=== PATIENT | female | born 1970 | race Caucasian/White ===

== ENCOUNTER 2017-04-13 07:57 | Emergency (ER) | payer OTHER ==
[2017-04-13 08:09] VITALS: BP 113/64; PULSE 85; TEMP 98; BMI 25.3
--- NOTE | 2017-04-13 08:14 | PDOC ---
History of Present Illness - General Chief Complaint: Pain Stated Complaint: LEG PAIN Time Seen by Provider: 04/13/17 08:10 History Source: Patient Exam Limitations: No Limitations - History of Present Illness Initial Comments: CHIEF COMPLAINT: 46 y/o afebrile female with no significant PMH c/o b/l leg pain x 3 weeks and lower abdominal pain x 3 days. HISTORY OF PRESENT ILLNESS: The patient states her lower legs have been hurting for 3 weeks. 3 days ago she started having lower abdominal discomfort. She denies f/c, n/v/d, constipation, cough, hemoptysis, CP, SOB, back pain, hematuria, dysuria, fall, recent travel, smoking history, use of control, redness/warmth to lower legs. Vital signs on arrival are within normal limits. REVIEW OF SYSTEMS: GENERAL/CONSTITUTIONAL: No fever/chills. No weakness. No weight change. GI: +lower abd pain. No nausea, vomiting, diarrhea. GENITOURINARY: No dysuria, frequency, or change in urination. MUSCULOSKELETAL: +lower extremity pain. No neck or back pain. SKIN: No rash or easy bruising. NEUROLOGIC: No headache, vertigo, loss of consciousness, or loss of sensation. PHYSICAL EXAM: VITAL_SIGNS: within normal limits GENERAL_APPEARANCE: alert, cooperative, no obvious discomfort. Pt is ambulatory. MENTAL_STATUS: speech clear, oriented X 3, responds appropriately to questions. GI: TTP of suprapubic region. No rebound, guarding, rigidity. No McBurney's point TTP. BACK: No CVA TTP b/l. NEURO: motor intact and sensory intact in injured extremity. EXTREMITIES: good pulse in injured extremity. TTP of b/l calves. No erythema, warmth or swelling to b/l LEs. SKIN: warm, dry, good color. Past History - Past Medical History Allergies/Adverse Reactions: Allergies Allergy/AdvReac Type Severity Reaction Status Date / Time No Known Allergies Allergy Verified 04/13/17 08:05 Home Medications: Ambulatory Orders Naproxen [Naprosyn -] 500 mg PO BID #10 tablet 04/13/17 Nitrofurantoin Monohyd/M-Cryst [Macrobid -] 100 mg PO BID #14 capsule 04/13/17 Kidney Stones: Yes - Immunization History Immunization Up to Date: Yes - Psycho/Social/Smoking Cessation Hx Anxiety: No Suicidal Ideation: No Smoking Status: No Smoking History: Never smoked Have you smoked in the past 12 months: No Number of Cigarettes Smoked Daily: 0 Hx Alcohol Use: Yes (OCCASIONALLY) Drug/Substance Use Hx: No Substance Use Type: None *Physical Exam - Vital Signs Last Vital Signs Temp Pulse Resp BP Pulse Ox 98 F 85 17 113/64 99 04/13/17 08:05 04/13/17 08:05 04/13/17 08:05 04/13/17 08:05 04/13/17 08:05 Medical Decision Making - Medical Decision Making A/P: 46 y/o afebrile female with suprapubic pain x 3 days and LE pain x 3 weeks. Plan is as follows: 1. UA/hcg/culture 2. Ultrasound b/l LEs. Ultrasound b/l LE IMPRESSION: No DVT in right or left leg. Laboratory Tests 04/13/17 08:50 Urine Blood 1+ H Urine Nitrite Negative Urine Bilirubin Negative Urine Urobilinogen Negative Ur Leukocyte Esterase 1+ H Urine RBC 2 Urine WBC 5 The patient will be discharged to home with macrobid for UTI. Suggested Naproxen for pain and f/u with her PCP if leg pain continues. Also encouraged at least 64oz of water daily. Suggested she return to the ER with any worsening or concerning symptoms. The patient verbalizes understanding of all instructions, has no further questions and is awaiting discharge. *DC/Admit/Observation/Transfer Diagnosis at time of Disposition: Leg pain, bilateral UTI (urinary tract infection) Qualifiers: Urinary tract infection type: acute cystitis Hematuria presence: with hematuria Qualified Code(s): N30.01 - Acute cystitis with hematuria - Discharge Dispostion Disposition: HOME Condition at time of disposition: Good - Referrals Referrals: Lavelle Seay MD [Primary Care Provider] - Call tomorrow - Patient Instructions Printed Discharge Instructions: DI for Leg Pain, DI for Urinary Tract Infection (UTI) Additional Instructions: Discharge Instructions: -You have a urinary tract infection; a prescription for antibiotics was sent to your pharmacy. Please take all 7 days. -The ultrasound of your legs were normal -A prescription was sent to you pharmacy for pain; please take only if needed with food -Drink at least 64oz of water daily -Call Dr. Seay next week to schedule appointment if your symptoms continue Instrucciones de graham: -Usted tiene helga infeccin del tracto urinario; Se le envi helga receta de antibi ticos a ramirez farmacia. Por favor tome los 7 sandoval. -El ultrasonido de las piernas era normal -Helga receta le fue enviada a usted farmacia para el dolor; Por favor tome solo si es necesario con alimentos - Glo por lo menos 64oz de agua al da - Llame al Dr. Seay la prxima semana para programar helga selma si hillary sntomas continan
[2017-04-13 09:03] LABS: URINE APPEARANCE CLEAR; URINE BILIRUBIN NEGATIVE (NEGATIVE); URINE COLOR STRAW; URINE GLUCOSE (UA) NEGATIVE (NEGATIVE); URINE KETONE NEGATIVE (NEGATIVE); URINE NITRITE NEGATIVE (NEGATIVE); URINE PROTEIN NEGATIVE (NEGATIVE); URINE UROBILINOGEN NEGATIVE E.U./dl (0.2-1.0)
[2017-04-13 09:13] LABS: URINE BLOOD 1+ (NEGATIVE); URINE LEUK ESTERASE 1+ (NEGATIVE)
[2017-04-13 09:15] LABS: URINE BACTERIA RARE /hpf (NONE SEEN); URINE RBC 2 /hpf (0-3); URINE WBC 5 /hpf (3-5)
== END 2017-04-13 11:20 | disposition home or self-care (01) ==
LOC: JERFT 07:57
DX: N30.01 Acute cystitis with hematuria (principal); M79.604 Pain in right leg; M79.605 Pain in left leg
CPT/HCPCS: 81003; 81015; 84703; 87086; 93970-TC; 99281-25

== ENCOUNTER 2018-10-28 14:51 | Emergency (ER) | payer OTHER ==
[2018-10-28 14:59] VITALS: BP 109/71; PULSE 89; TEMP 98; BMI 29.2
--- NOTE | 2018-10-28 16:56 | PDOC ---
Attending Attestation - HPI HPI: 10/28/18 19:22 The patient is a 48 year old female with no past medical history who presents to the ED today complaining of chest pain since earlier today and numbness for the past 3 days. The patients reports sharp left sided chest pain which radiates to her lower left shoulder and left arm. The patient notes that the pain was intermediate and has since subsided. The patient reports having intermediate numbness on the left side of her body for the past 3 days. Denies fevers or chills. Denies nausea or vomiting. Denies chest pain or shortness of breath. Denies tinglingness, dysphagia. Denies any other symptoms. <Jaqui Quinn - Last Filed: 10/28/18 19:23> - Resident Resident Name: Wade Sifuentes - ED Attending Attestation I have performed the following: I have examined & evaluated the patient, The case was reviewed & discussed with the resident, I agree w/resident's findings & plan, Exceptions are as noted - Physicial Exam PE: 10/29/18 16:42 wnwd 48 yo female with 3 days of pain head ncat neck supple lungs cta b/l cvs [id number] abd soft,nontender extremities no edema skin warm and dry neuro axox3,ambulatory psych sl anxious - Medical Decision Making 10/29/18 16:45 first trop negative ekg no ischemia pt eloped imp atypical chest pain <Araseli Bagley - Last Filed: 10/29/18 16:45> Attestations - Attestations 10/28/18 19:23 Documentation prepared by Jaqui Quinn, acting as lead medical technologist for Araseli Bagley MD <Jaqui Quinn - Last Filed: 10/28/18 19:23>
[2018-10-28 16:58] LABS: BASO % 0.9 % (0-2.0); EOS % 4.1 % (0-4.5); HEMATOCRIT 39.6 % (32.4-45.2); HEMOGLOBIN 13.4 GM/dL (10.7-15.3); LYMPH % 47.6 % (8-40); MCHC 33.8 g/dl (32.0-36.0); MEAN CELL VOLUME 91.7 fl (80-96); MONO % 7.2 % (3.8-10.2); NEUT % 40.2 % (42.8-82.8); PLATELET COUNT 229 K/MM3 (134-434); RBC 4.32 M/mm3 (3.60-5.2); RDW 13.5 % (11.6-15.6); WHITE BLOOD COUNT 8.2 K/mm3 (4.0-10.0)
--- NOTE | 2018-10-28 17:01 | PDOC ---
History of Present Illness - General Chief Complaint: Chest Pain Stated Complaint: PAIN Time Seen by Provider: 10/28/18 16:03 History Source: Patient Exam Limitations: No Limitations - History of Present Illness Initial Comments: 10/28/18 16:50 The patient is a 48F with no PMH who presents to the ER with multiple complaints. The patient states that she began having L sided chest pain which is sharp and radiating up to her L shoulder and down her arm. The pain was intermittent and is no longer present. She denies SOB, lightheadedness, diaphoresis, nausea, vomiting, and palpitations. She also states that for the last 3 days, she's had intermittent numbness on the L side of her body. She states that this is not associated with weakness or tingling, activities, time of day, blurry vision, or dysphagia. She denies current numbness. She denies any other complaints. Past History - Past Medical History Allergies/Adverse Reactions: Allergies Allergy/AdvReac Type Severity Reaction Status Date / Time No Known Allergies Allergy Verified 10/28/18 14:59 Home Medications: Ambulatory Orders NK [No Known Home Medication] 10/28/18 COPD: No Kidney Stones: Yes - Immunization History Immunization Up to Date: Yes - Suicide/Smoking/Psychosocial Hx Smoking Status: No Smoking History: Never smoked Have you smoked in the past 12 months: No Number of Cigarettes Smoked Daily: 0 Hx Alcohol Use: Yes (OCCASIONALLY) Drug/Substance Use Hx: No Substance Use Type: None Review of Systems - Review of Systems Able to Perform ROS?: Yes Comments:: 10/28/18 17:02 GENERAL/CONSTITUTIONAL: No fever or chills. No weakness. HEAD, EYES, EARS, NOSE AND THROAT: No change in vision. No ear pain or discharge. No sore throat. CARDIOVASCULAR: Positive for resolved CP. No palpitations or lightheadedness. RESPIRATORY: No cough, wheezing, shortness of breath, or hemoptysis. GASTROINTESTINAL: No nausea, vomiting, diarrhea, constipation, or abdominal pain. GENITOURINARY: No dysuria, frequency, hematuria, or change in urination. MUSCULOSKELETAL: No joint or muscle swelling or pain. No neck or back pain. SKIN: No rash or lesions. NEUROLOGIC: Positive for numbness. No headache, tingling, focal weakness, loss of consciousness, or change in strength/sensation. ENDOCRINE: No increased thirst. No abnormal weight change. HEMATOLOGIC/LYMPHATIC: No anemia, easy bleeding, or history of blood clots. ALLERGIC/IMMUNOLOGIC: No hives or skin allergy. Is the patient limited Thai proficient: No *Physical Exam - Vital Signs Last Vital Signs Temp Pulse Resp BP Pulse Ox 98 F 89 18 109/71 99 10/28/18 14:56 10/28/18 14:56 10/28/18 14:56 10/28/18 14:56 10/28/18 14:56 - Physical Exam Comments: 10/28/18 17:06 GENERAL: Well developed, well nourished. Awake and alert. No acute distress. HEENT: Normocephalic, atraumatic. Hearing grossly normal. Moist mucous membranes. PERRLA, EOMI. No conjunctival pallor. Sclera are non-icteric. NECK: Supple. Full ROM. No JVD. Carotid pulses 2+ and symmetric, without bruits. No thyromegaly. No lymphadenopathy. CARDIOVASCULAR: Regular rate and rhythm. No murmurs, rubs, or gallops. PULMONARY: No evidence of respiratory distress. Lungs clear to auscultation bilaterally. No wheezing, rales or rhonchi. ABDOMINAL: Soft. Non-tender. Non-distended. No rebound or guarding. GENITOURINARY: No CVA tenderness bilaterally. MUSCULOSKELETAL: Normal range of motion at all joints. No bony deformities or tenderness. EXTREMITIES: No cyanosis. No clubbing. No edema. No calf tenderness or swelling. SKIN: Warm and dry. Normal capillary refill. No rashes. No jaundice. NEUROLOGICAL: Alert, awake, appropriate. Cranial nerves 2-12 intact. No deficits to light touch and temperature in face, upper extremities and lower extremities. 5/5 strength in deltoids, biceps, triceps, quadriceps, hamstrings, and gastrocnemius. Normal speech. Gait is normal without ataxia. PSYCHIATRIC: Cooperative. Good eye contact. Appropriate mood and affect. Moderate Sedation - Procedure Monitoring Vital Signs: Procedure Monitoring Vital Signs Temperature 98 F 10/28/18 14:56 Pulse Rate 89 10/28/18 14:56 Respiratory Rate 18 10/28/18 14:56 Blood Pressure 109/71 10/28/18 14:56 O2 Sat by Pulse Oximetry (%) 99 10/28/18 14:56 ED Treatment Course - LABORATORY CBC & Chemistry Diagram: 10/28/18 16:50 10/28/18 16:50 - RADIOLOGY Radiology Studies Ordered: Category Date Time Status CHEST PA & LAT [RAD] Stat Radiology 10/28/18 16:17 Ordered Medical Decision Making - Medical Decision Making 10/28/18 17:06 The patient is a 48F with no PMH who presents to the ER with complaints of chest pain and intermittent numbness, all of which are not present currently. The patient states that she has a strong family history of cardiovascular disease, so we will order an EKG, CXR, labwork including troponin, to evaluate for possible cardiac cause of CP. 10/28/18 17:10 Pt negative troponin. CBC, CMP WNL. Pt informed and informed to wait for 2nd troponin due to pt's history of having her brother have SCD at the age of 45. Pt agrees. 10/28/18 19:11 Searched for patient throughout ED and called pt. Pt eloped. *DC/Admit/Observation/Transfer Diagnosis at time of Disposition: Chest pain, atypical - Discharge Dispostion Disposition: ELOPED - Referrals - Patient Instructions - Post Discharge Activity
[2018-10-28 17:10] LABS: INR 0.91 (0.83-1.09); PROTHROMBIN TIME (PATIENT) 10.7 SEC (9.7-13.0)
[2018-10-28 17:33] LABS: ALBUMIN 3.7 g/dl (3.4-5.0); ALK PHOS 84 U/L (45-117); ANION GAP 8 MMOL/L (8-16); BILIRUBIN,TOTAL 0.2 mg/dL (0.2-1); BLOOD UREA NITROGEN 19 mg/dL (7-18); CHLORIDE 106 mmol/L (98-107); CO2 25 mmol/L (21-32); CREATININE 0.7 mg/dL (0.55-1.3); GLUCOSE,RANDOM 90 mg/dL (74-106); POTASSIUM 3.8 mmol/L (3.5-5.1); SGOT/AST 16 U/L (15-37); SGPT/ALT 18 U/L (13-61); SODIUM 139 mmol/L (136-145); TOT PROT 7.3 g/dl (6.4-8.2)
--- NOTE | 2018-10-29 12:17 | EKG ---
Test Reason : Blood Pressure : / mmHG Vent. Rate : 084 BPM Atrial Rate : 084 BPM P-R Int : 148 ms QRS Dur : 076 ms QT Int : 362 ms P-R-T Axes : 068 054 071 degrees QTc Int : 427 ms NORMAL SINUS RHYTHM NORMAL ECG WHEN COMPARED WITH ECG OF 11-NOV-2014 04:32, NO SIGNIFICANT CHANGE WAS FOUND Confirmed by ADY DING MD ([id number]) on 10/29/2018 12:16:40 PM Referred By: Confirmed By:ADY DING MD
== END 2018-10-28 19:12 | disposition left against medical advice (07) ==
LOC: JER 14:51
DX: R07.89 Other chest pain (principal)
CPT/HCPCS: 36415; 80053; 82550; 84484; 84703; 85025; 85610; 93005; 93010; 99281-25

== ENCOUNTER 2018-11-19 13:35 | Emergency (ER) | payer OTHER ==
[2018-11-19 13:42] VITALS: BP 108/71; PULSE 89; TEMP 97.8; BMI 31.0
--- NOTE | 2018-11-19 15:28 | PDOC ---
History of Present Illness - General Chief Complaint: Pain, Acute Stated Complaint: NECK / BACK PAIN Time Seen by Provider: 11/19/18 14:24 History Source: Patient - History of Present Illness Timing/Duration: reports: intermittent Quality: reports: mild Past History - Past Medical History Allergies/Adverse Reactions: Allergies Allergy/AdvReac Type Severity Reaction Status Date / Time No Known Allergies Allergy Verified 10/28/18 14:59 Home Medications: Ambulatory Orders NK [No Known Home Medication] 10/28/18 COPD: No Kidney Stones: Yes - Immunization History Immunization Up to Date: Yes - Suicide/Smoking/Psychosocial Hx Smoking Status: No Smoking History: Never smoked Have you smoked in the past 12 months: No Number of Cigarettes Smoked Daily: 0 Information on smoking cessation initiated: No Hx Alcohol Use: No Drug/Substance Use Hx: No Substance Use Type: None Review of Systems - Review of Systems Constitutional: No: Chills, Fever ABD/GI: Yes: Nausea, Vomiting. No: Blood Streaked Bowels, Constipated, Diarrhea , Rectal Bleeding, Abdominal cramping : No: Dysuria, Discharge *Physical Exam - Vital Signs Last Vital Signs Temp Pulse Resp BP Pulse Ox 97.8 F 89 18 108/71 98 11/19/18 13:38 11/19/18 13:38 11/19/18 13:38 11/19/18 13:38 11/19/18 13:38 - Physical Exam General Appearance: Yes: Appropriately Dressed. No: Apparent Distress HEENT: positive: Normal Voice Neck: positive: Supple Respiratory/Chest: negative: Respiratory Distress Gastrointestinal/Abdominal: positive: Normal Bowel Sounds, Soft. negative: Tender, Distended, Guarding, Rebound Musculoskeletal: negative: CVA Tenderness Integumentary: positive: Dry, Warm Neurologic: positive: Fully Oriented, Alert Moderate Sedation - Procedure Monitoring Vital Signs: Procedure Monitoring Vital Signs Temperature 97.8 F 11/19/18 13:38 Pulse Rate 89 11/19/18 13:38 Respiratory Rate 18 11/19/18 13:38 Blood Pressure 108/71 11/19/18 13:38 O2 Sat by Pulse Oximetry (%) 98 11/19/18 13:38 ED Treatment Course - LABORATORY CBC & Chemistry Diagram: 11/19/18 15:30 11/19/18 15:30 Medical Decision Making - Medical Decision Making 11/19/18 15:19 48 yo F, states she had a MEAGHAN-BSO for "pre-cancer" in 06/2015 at [facility] per pt, here because she has had multiple + tests at home recently and in her doctor's office. Patient states she performed a test because for the past few days she's been having some nausea, vomiting, abdominal bloating and bilateral breast pain and felt that I was . No vaginal bleeding at this time. Last BM was yesterday and passing gas per pt. No Denies abd pain, dysuria, f/c See exam N/V w/ bloating Possible gastritis/GERD, unlikely SBO as +BM and flatus, +preg test at home though s/p MEAGHAN-BSO 2/2 endometrial hyperplasia per documents pt has on her person -rpt preg test here -labs -will discuss further w/u with ED attg 11/19/18 16:50 Beta quant 8. M/l false + given extensive [employer] surgery but will get US as d/w ED attg 11/19/18 17:47 Ultrasound read as s/p hysterectomy and bilateral oophorectomies. No abnormalities noted. Patient made aware and will be discharged to f/u /w her OB *DC/Admit/Observation/Transfer Diagnosis at time of Disposition: Elevated serum hCG - Discharge Dispostion Disposition: HOME Condition at time of disposition: Stable - Referrals - Patient Instructions Additional Instructions: Your beta hCG today was 8. The reason for this is unclear as you have had a total hysterectomy which is demonstrated on your ultrasound, which was normal here. Continue to follow-up with your [employer] - Post Discharge Activity
[2018-11-19 15:51] LABS: BASO % 0.8 % (0-2.0); EOS % 3.7 % (0-4.5); HEMATOCRIT 40.4 % (32.4-45.2); HEMOGLOBIN 13.8 GM/dL (10.7-15.3); LYMPH % 39.8 % (8-40); MCH 31.6 pg (25.7-33.7); MCHC 34.2 g/dl (32.0-36.0); MEAN CELL VOLUME 92.3 fl (80-96); MEAN PLT VOLUME 10.3 fl (7.5-11.1); MONO % 6.8 % (3.8-10.2); NEUT % 48.9 % (42.8-82.8); PLATELET COUNT 236 K/MM3 (134-434); RBC 4.37 M/mm3 (3.60-5.2); RDW 13.6 % (11.6-15.6); WHITE BLOOD COUNT 7.5 K/mm3 (4.0-10.0)
[2018-11-19 15:58] LABS: URINE APPEARANCE SLCLOUDY; URINE BILIRUBIN NEGATIVE (<2.0 mg/dL); URINE COLOR YELLOW; URINE GLUCOSE (UA) NEGATIVE (NEGATIVE); URINE KETONE NEGATIVE (NEGATIVE); URINE LEUK ESTERASE NEGATIVE (NEGATIVE); URINE NITRITE POSITIVE (NEGATIVE); URINE PROTEIN NEGATIVE (NEGATIVE); URINE UROBILINOGEN NEGATIVE mg/dL (0.2-1.0)
[2018-11-19 16:14] LABS: ALBUMIN 3.6 g/dl (3.4-5.0); ALK PHOS 79 U/L (45-117); ANION GAP 4 MMOL/L (8-16); BILIRUBIN,TOTAL 0.3 mg/dL (0.2-1); BLOOD UREA NITROGEN 16 mg/dL (7-18); CALCIUM 8.8 mg/dL (8.5-10.1); CHLORIDE 109 mmol/L (98-107); CO2 28 mmol/L (21-32); CREATININE 0.8 mg/dL (0.55-1.3); GLUCOSE,RANDOM 97 mg/dL (74-106); POTASSIUM 4.1 mmol/L (3.5-5.1); SGOT/AST 15 U/L (15-37); SGPT/ALT 24 U/L (13-61); SODIUM 141 mmol/L (136-145); TOT PROT 7.2 g/dl (6.4-8.2)
[2018-11-19 16:16] LABS: EPI CELLS FEW /HPF (FEW); URINE MUCUS RARE
--- NOTE | 2018-11-19 17:51 | PDOC ---
*Physical Exam - Vital Signs Last Vital Signs Temp Pulse Resp BP Pulse Ox 97.8 F 89 18 108/71 98 11/19/18 13:38 11/19/18 13:38 11/19/18 13:38 11/19/18 13:38 11/19/18 13:38 ED Treatment Course - LABORATORY CBC & Chemistry Diagram: 11/19/18 15:30 11/19/18 15:30 - ADDITIONAL ORDERS Additional order review: Laboratory Results 11/19/18 11/19/18 11/19/18 15:30 15:28 15:28 Sodium 141 Potassium 4.1 Chloride 109 H Carbon Dioxide 28 Anion Gap 4 L BUN 16 Creatinine 0.8 Creat Clearance w eGFR > 60 Random Glucose 97 Calcium 8.8 Total Bilirubin 0.3 AST 15 ALT 24 Alkaline Phosphatase 79 Total Protein 7.2 Albumin 3.6 Beta HCG, Quant 8.9 Urine Color Yellow Urine Appearance Slcloudy Urine pH 5.0 Ur Specific [place] 1.021 Urine Protein Negative Urine Glucose (UA) Negative Urine Ketones Negative Urine Blood 1+ H Urine Nitrite Positive Urine Bilirubin Negative Urine Urobilinogen Negative Ur Leukocyte Esterase Negative Urine WBC (Auto) 7 Urine RBC (Auto) 3 Ur Epithelial Cells Few Urine Mucus Rare Urine HCG, Qual Borderline hcg level 11/19/18 15:30 RBC 4.37 MCV 92.3 MCHC 34.2 RDW 13.6 MPV 10.3 Neutrophils % 48.9 D Lymphocytes % 39.8 Monocytes % 6.8 Eosinophils % 3.7 Basophils % 0.8 - RADIOLOGY Radiology Studies Ordered: Category Date Time Status TRANSVAGINAL US PREG [US] Stat Ultrasound 11/19/18 16:41 Completed Medical Decision Making - Medical Decision Making 11/19/18 17:50 Will dc/ abx for uti though pt denies dysuria. Ucx sent *DC/Admit/Observation/Transfer Diagnosis at time of Disposition: Elevated serum hCG UTI (urinary tract infection) Qualifiers: Urinary tract infection type: acute cystitis Hematuria presence: without hematuria Qualified Code(s): N30.00 - Acute cystitis without hematuria - Discharge Dispostion Disposition: HOME Condition at time of disposition: Stable - Prescriptions Prescriptions: Nitrofurantoin Monohyd/M-Cryst [Macrobid -] 100 mg PO BID #14 capsule - Referrals - Patient Instructions Printed Discharge Instructions: Urinary Tract Infection Additional Instructions: Your beta hCG today was 8. The reason for this is unclear as you have had a total hysterectomy which is demonstrated on your ultrasound, which was normal here. Continue to follow-up with your [facility] - Post Discharge Activity
== END 2018-11-19 18:20 | disposition home or self-care (01) ==
LOC: JER 13:35
DX: R89.1 Abnormal level of hormones in specimens from other organs, systems and tissues (principal); R74.8 Abnormal levels of other serum enzymes; E34.8 Other specified endocrine disorders; Z90.710 Acquired absence of both cervix and uterus; Z90.722 Acquired absence of ovaries, bilateral
CPT/HCPCS: 36415; 76817-TC; 80053; 81003; 81015; 84702; 84703; 85025; 99282-25

== ENCOUNTER 2020-08-24 08:58 | Emergency (ER) | payer OTHER ==
[2020-08-24 09:10] VITALS: BMI 29.2
[2020-08-24 10:21] LABS: EPI CELLS >36 /uL (0-25.1); HYALINE CASTS 1 /uL (0-3.1); URINE APPEARANCE CLEAR; URINE BACTERIA 7707 /uL (0-1359); URINE BILIRUBIN NEGATIVE (NEGATIVE); URINE COLOR YELLOW; URINE GLUCOSE (UA) NEGATIVE (NEGATIVE); URINE KETONE NEGATIVE (NEGATIVE); URINE LEUK ESTERASE 1+ (NEGATIVE); URINE NITRITE NEGATIVE (NEGATIVE); URINE PROTEIN NEGATIVE (NEGATIVE); URINE RBC 10 /uL (0-23.9); URINE UROBILINOGEN 0.2 mg/dL (0.2-1.0); URINE WBC 44 /uL (0-25.8)
[2020-08-24] MEDS ORDERED: KETOROLAC TROMETHAMINE 30 MG/1 ML VIAL IVPUSH ONE (10:26)
[2020-08-24] MEDS ORDERED: KETOROLAC TROMETHAMINE 30 MG/1 ML VIAL ONE (10:31)
[2020-08-24 11:20] LABS: BASO % 0.8 % (0-2.0); EOS % 2.7 % (0-4.5); HEMATOCRIT 41.7 % (32.4-45.2); HEMOGLOBIN 13.9 GM/dL (10.7-15.3); LYMPH % 45.5 % (8-40); MCHC 33.4 g/dl (32.0-36.0); MEAN CELL VOLUME 92.8 fl (80-96); MEAN PLT VOLUME 11.1 fl (7.5-11.1); PLATELET COUNT 256 K/MM3 (134-434); RDW 13.5 % (11.6-15.6); WHITE BLOOD COUNT 7.8 K/mm3 (4.0-10.0)
[2020-08-24 11:45] LABS: POTASSIUM 4.9 mmol/L (3.5-5.1)
[2020-08-24 11:47] LABS: ALBUMIN 3.6 g/dl (3.4-5.0); BLOOD UREA NITROGEN 12.6 mg/dL (7-18); CALCIUM 9.3 mg/dL (8.5-10.1)
[2020-08-24 11:50] LABS: CREATININE 0.7 mg/dL (0.55-1.3)
[2020-08-24 11:52] LABS: BILIRUBIN,TOTAL 0.6 mg/dL (0.2-1); TOT PROT 7.4 g/dl (6.4-8.2)
[2020-08-24 12:02] VITALS: BP 120/65; PULSE 70; TEMP 98.1
== END 2020-08-24 12:45 | disposition home or self-care (01) ==
LOC: JERFT 08:58
PROC: 3E0333Z Introduction of Anti-inflammatory into Peripheral Vein, Percutaneous Approach (ICD-10-PCS; principal; 2020-08-24)
DX: M54.5 Low back pain (principal)
CPT/HCPCS: 36415; 72100-TC-FY; 76705-TC; 80053; 81003; 83690; 85025; 87086; 87186; 99285-25

== ENCOUNTER 2021-07-24 03:41 | Emergency (ER) | payer OTHER ==
[2021-07-24] MEDS ORDERED: SODIUM CHLORIDE 0.9% 500 ML INFUS.BAG IV ONE (04:30)
[2021-07-24] MEDS ORDERED: METOCLOPRAMIDE HCL INJECTION 10 MG/2 ML VIAL IVPUSH ONE (04:30)
[2021-07-24] MEDS ORDERED: ACETAMINOPHEN 325 MG TABLET (FP) PO ONE (04:30)
[2021-07-24 04:52] VITALS: BP 128/67; PULSE 84; TEMP 97.9; BMI 31.2
[2021-07-24] MEDS ORDERED: ACETAMINOPHEN 325 MG TABLET (FP) ONE (04:54)
[2021-07-24] MEDS ORDERED: METOCLOPRAMIDE HCL INJECTION 10 MG/2 ML VIAL ONE (04:54)
[2021-07-24] MEDS ORDERED: SUMATRIPTAN SUCCINATE 6 MG/0.5 ML VIAL SQ ONE (05:10)
[2021-07-24] MEDS ORDERED: SUMATRIPTAN SUCCINATE 6 MG/0.5 ML VIAL ONE (05:12)
[2021-07-24 05:58] LABS: EPI CELLS 6 /uL (0-25.1); HYALINE CASTS 0 /uL (0-3.1); PH,URINE 6.5 (5.0-8.0); URINE APPEARANCE CLEAR; URINE BACTERIA >9,000 /uL (0-1359); URINE BILIRUBIN NEGATIVE (NEGATIVE); URINE COLOR YELLOW; URINE GLUCOSE (UA) NEGATIVE (NEGATIVE); URINE KETONE NEGATIVE (NEGATIVE); URINE LEUK ESTERASE TRACE (NEGATIVE); URINE NITRITE NEGATIVE (NEGATIVE); URINE PROTEIN NEGATIVE (NEGATIVE); URINE RBC 9 /uL (0-23.9); URINE UROBILINOGEN 0.2 mg/dL (0.2-1.0); URINE WBC 41 /uL (0-25.8)
[2021-07-24] MEDS ORDERED: CEFTRIAXONE 1 GM in DEXTROSE 5%-WATER - 100 ML IVPB ONE (06:00)
[2021-07-24] MEDS ORDERED: CEFTRIAXONE 1 GM/50 ML BAG ONE (06:03)
== END 2021-07-24 06:24 | disposition home or self-care (01) ==
LOC: JER 03:41
PROC: 3E03329 Introduction of Other Anti-infective into Peripheral Vein, Percutaneous Approach (ICD-10-PCS; principal; 2021-07-24)
PROC: 3E033GC Introduction of Other Therapeutic Substance into Peripheral Vein, Percutaneous Approach (ICD-10-PCS; 2021-07-24)
DX: G43.009 Migraine without aura, not intractable, without status migrainosus (principal); N30.00 Acute cystitis without hematuria
CPT/HCPCS: 81003; 87086; 87186; 99284-25

== ENCOUNTER 2021-07-25 11:04 | Emergency (ER) | payer OTHER ==
[2021-07-25 11:11] VITALS: BP 121/77; PULSE 89; TEMP 97; BMI 31.2
[2021-07-25] MEDS ORDERED: KETOROLAC TROMETHAMINE 30 MG/1 ML VIAL IM ONE (12:03)
[2021-07-25] MEDS ORDERED: KETOROLAC TROMETHAMINE 60 MG/2 ML VIAL ONE (12:57)
== END 2021-07-25 12:47 | disposition home or self-care (01) ==
LOC: JERFT 11:04
PROC: 3E0233Z Introduction of Anti-inflammatory into Muscle, Percutaneous Approach (ICD-10-PCS; principal; 2021-07-25)
DX: K02.9 Dental caries, unspecified (principal); K08.89 Other specified disorders of teeth and supporting structures
CPT/HCPCS: 99283-25

== ENCOUNTER → 2022-08-10 | Day surgery (SDC) | payer OTHER | END | disposition home or self-care (01) | LOC: FRADUS-SUR 13:04 | PROVIDERS: ATTEND Registered Nurse | PROC: 0HBU3ZX Excision of Left Breast, Percutaneous Approach, Diagnostic (ICD-10-PCS; principal; 2022-08-10) | DX: C50.912 Malignant neoplasm of unspecified site of left female breast (principal); N60.12 Diffuse cystic mastopathy of left breast; N60.32 Fibrosclerosis of left breast; N60.82 Other benign mammary dysplasias of left breast; N64.89 Other specified disorders of breast; R92.8 Other abnormal and inconclusive findings on diagnostic imaging of breast | CPT/HCPCS: 19085; 77065-TC; 88305-TC; A4648; A9579; C1887 ==

== ENCOUNTER → 2022-09-05 | Day surgery (SDC) | payer OTHER | END | disposition home or self-care (01) | LOC: JMAMMOTONE 10:06 | PROVIDERS: ATTEND Surgery Surgical Oncology | PROC: BH01ZZZ Plain Radiography of Left Breast (ICD-10-PCS; principal; 2022-09-05) | DX: C50.912 Malignant neoplasm of unspecified site of left female breast (principal) | CPT/HCPCS: 19281; A4648 ==

== ENCOUNTER 2022-09-07 04:07 | Day surgery (SDC) | payer OTHER ==
[2022-09-07 08:26] VITALS: BMI 31.2
[2022-09-07] MEDS ORDERED: FENTANYL CITRATE/PF 50 MCG/ML VIAL ONE ×6 (10:46→12:59)
[2022-09-07] MEDS ORDERED: DEXAMETHASONE SOD PHOSPHATE 4 MG/1 ML VIAL ONE (10:46)
[2022-09-07] MEDS ORDERED: PROPOFOL 20 ML ONE (10:46)
[2022-09-07] MEDS ORDERED: LIDOCAINE HCL/PF 2% SDV 5ML VIAL ONE (10:46)
[2022-09-07] MEDS ORDERED: KETOROLAC TROMETHAMINE 30 MG/1 ML VIAL ONE (10:46)
[2022-09-07] MEDS ORDERED: ONDANSETRON 4 MG/2 ML VIAL ONE (10:46)
[2022-09-07] MEDS ORDERED: ceFAZolin 2 GRAM PREMIX BAG IVPB ONE (11:03)
[2022-09-07] MEDS ORDERED: ceFAZolin SODIUM 1 GM VIAL ONE (11:03)
[2022-09-07] MEDS ORDERED: FENTANYL CITRATE/PF 50 MCG/ML VIAL IVPUSH PRN (11:40)
[2022-09-07] MEDS ORDERED: PROMETHAZINE HCL 25 MG/1 ML VIAL IVPUSH PRN (11:40)
[2022-09-07] MEDS ORDERED: oxyCODONE HCL 5 MG TABLET PO PRN ×2 (11:40)
[2022-09-07] MEDS ORDERED: ONDANSETRON 4 MG/2 ML VIAL IVPUSH PRN (11:40)
[2022-09-07] MEDS ORDERED: ACETAMINOPHEN 1000 MG/100 ML BAG IVPB ONE ×2 (11:41→12:13)
[2022-09-07] MEDS ORDERED: LACTATED RINGERS SOLUTION 1,000 ML IV SCH (11:45)
[2022-09-07] MEDS ORDERED: BUPIVACAINE HCL/PF 0.25% (2.5MG/ML) 10 ML VIAL IJ ONE (12:00)
[2022-09-07] MEDS ORDERED: ACETAMINOPHEN INJECTION 100 ML IVPB ONE (12:10)
[2022-09-07] MEDS ORDERED: oxyCODONE HCL 5 MG TABLET ONE (13:20)
[2022-09-07] MEDS ORDERED: oxyCODONE HCL 5 MG TABLET PO ONE (13:22)
[2022-09-07 14:59] VITALS: RESP 20
[2022-09-07 15:43] VITALS: BP 127/75; PULSE 82; TEMP 97.3
== END 2022-09-07 16:09 | disposition home or self-care (01) ==
LOC: JASU-SURG 04:07
PROVIDERS: ATTEND Surgery Surgical Oncology
PROC: 0HBU0ZZ Excision of Left Breast, Open Approach (ICD-10-PCS; principal; 2022-09-07 10:45)
DX: C50.912 Malignant neoplasm of unspecified site of left female breast (principal); C77.3 Secondary and unspecified malignant neoplasm of axilla and upper limb lymph nodes
CPT/HCPCS: 76098-TC-FY; 78195-TC; 88307-TC; 94760; A9541

== ENCOUNTER 2022-12-13 12:28 | Day surgery (SDC) | payer OTHER ==
[~2022-12-13 12:28] MED LIST: CARBOPLATIN IVPB ONE; DEXAMETHASONE SODIUM PHOSPHATE 12 MG in SODIUM CHLORIDE 50 ML IVPB ONE; DOCETAXEL 132 MG in SODIUM CHLORIDE 250 ML IV ONE; FOSAPREPITANT DIMEGLUMINE 150 MG in SODIUM CHLORIDE 145 ML IVPB ONE; PALONOSETRON HCL 0.25 MG/5 ML VIAL IVPUSH ONE; SODIUM CHLORIDE 250 ML IV ONE; SODIUM CHLORIDE IVPB ONE
[2022-12-13 13:17] LABS: BASO % 1.2 % (0-2.0); HEMATOCRIT 42.4 % (32.4-45.2); HEMOGLOBIN 13.9 GM/dL (10.7-15.3); LYMPH % 40.7 % (8-40); MCH 29.6 pg (25.7-33.7); MCHC 32.8 g/dl (32.0-36.0); MEAN CELL VOLUME 90.3 fl (80-96); MEAN PLT VOLUME 9.6 fl (7.5-11.1); MONO % 6.4 % (3.8-10.2); NEUT % 48.7 % (42.8-82.8); PLATELET COUNT 305 10^3/uL (134-434); RBC 4.69 M/mm3 (3.60-5.2); RDW 13.8 % (11.6-15.6); WHITE BLOOD COUNT 6.9 K/mm3 (4.0-10.0)
[2022-12-13 13:38] LABS: CALCIUM 9.7 mg/dL (8.5-10.1)
[2022-12-13 13:39] LABS: ALBUMIN 3.6 g/dl (3.4-5.0); BLOOD UREA NITROGEN 13.3 mg/dL (7-18); MAGNESIUM 2.2 mg/dL (1.8-2.4)
[2022-12-13 13:43] LABS: BILIRUBIN,TOTAL 0.3 mg/dL (0.2-1); CREATININE 0.7 mg/dL (0.55-1.3); TOT PROT 7.2 g/dl (6.4-8.2)
[2022-12-13 14:04] LABS: PH,URINE 7.5 (5.0-8.0); URINE APPEARANCE CLEAR; URINE BILIRUBIN NEGATIVE (NEGATIVE); URINE COLOR YELLOW; URINE GLUCOSE (UA) NEGATIVE (NEGATIVE); URINE KETONE NEGATIVE (NEGATIVE); URINE LEUK ESTERASE NEGATIVE (NEGATIVE); URINE NITRITE NEGATIVE (NEGATIVE); URINE PROTEIN NEGATIVE (NEGATIVE); URINE UROBILINOGEN 0.2 mg/dL (0.2-1.0)
[2022-12-13 17:20] VITALS: BP 118/52; PULSE 92; RESP 20; TEMP 98.8
== END 2022-12-13 16:50 | disposition home or self-care (01) ==
LOC: JONCCHEMO 12:28
PROVIDERS: ATTEND Internal Medicine Hematology & Oncology
DX: Z51.11 Encounter for antineoplastic chemotherapy (principal); C50.912 Malignant neoplasm of unspecified site of left female breast
CPT/HCPCS: 36415; 80053; 81003; 83735; 85025; 87086; 96367; 96375; 96413; 96417; J1453; J2469; J9171

== ENCOUNTER 2022-12-14 12:41 | Day surgery (SDC) | payer OTHER ==
[~2022-12-14 12:41] MED LIST changes: -CARBOPLATIN IVPB ONE; -DEXAMETHASONE SODIUM PHOSPHATE 12 MG in SODIUM CHLORIDE 50 ML IVPB ONE; +DEXAMETHASONE SODIUM PHOSPHATE 8 MG in SODIUM CHLORIDE 50 ML IVPB ONE; -DOCETAXEL 132 MG in SODIUM CHLORIDE 250 ML IV ONE; -FOSAPREPITANT DIMEGLUMINE 150 MG in SODIUM CHLORIDE 145 ML IVPB ONE; +MAGNESIUM SULFATE IN WATER 2 GM/50 ML IVPB IVPB ONE; -PALONOSETRON HCL 0.25 MG/5 ML VIAL IVPUSH ONE; +PEGFILGRASTIM-CBQV (UDENYCA) 6 MG/0.6 ML SYRINGE SQ ONE; +SODIUM CHLORIDE 0.9%/KCL 20 MEQ/1,000 ML INFUS.BAG IV ONE; -SODIUM CHLORIDE 250 ML IV ONE; -SODIUM CHLORIDE IVPB ONE
[2022-12-14 15:57] VITALS: BP 118/76; PULSE 99; RESP 20; TEMP 98
== END 2022-12-14 13:00 | disposition home or self-care (01) ==
LOC: JONCCHEMO 12:41
PROVIDERS: ATTEND Internal Medicine Hematology & Oncology
PROC: 3E033GC Introduction of Other Therapeutic Substance into Peripheral Vein, Percutaneous Approach (ICD-10-PCS; principal; 2022-12-14)
PROC: 3E013GC Introduction of Other Therapeutic Substance into Subcutaneous Tissue, Percutaneous Approach (ICD-10-PCS; 2022-12-14)
DX: C50.912 Malignant neoplasm of unspecified site of left female breast (principal); Z76.89 Persons encountering health services in other specified circumstances
CPT/HCPCS: 96365; 96372; Q5111

== ENCOUNTER 2023-01-03 10:54 | Day surgery (SDC) | payer OTHER ==
[2023-01-03] MEDS ORDERED: SODIUM CHLORIDE 250 ML IV ONE (11:15)
[2023-01-03] MEDS ORDERED: FOSAPREPITANT DIMEGLUMINE 150 MG in SODIUM CHLORIDE 145 ML IVPB ONE (11:45)
[2023-01-03] MEDS ORDERED: DEXAMETHASONE SODIUM PHOSPHATE 10 MG in SODIUM CHLORIDE 50 ML IVPB ONE (11:45)
[2023-01-03] MEDS ORDERED: PALONOSETRON HCL 0.25 MG/5 ML VIAL IVPUSH ONE (11:45)
[2023-01-03] MEDS ORDERED: LORATADINE 10 MG TABLET PO ONE (11:45)
[2023-01-03] MEDS ORDERED: DOCETAXEL 128 MG in SODIUM CHLORIDE 250 ML IV ONE (12:15)
[2023-01-03 13:12] LABS: BASO % 0.1 % (0-2.0); HEMATOCRIT 35.8 % (32.4-45.2); HEMOGLOBIN 12.2 GM/dL (10.7-15.3); LYMPH % 14.7 % (8-40); MCH 30.8 pg (25.7-33.7); MEAN CELL VOLUME 90.6 fl (80-96); MEAN PLT VOLUME 8.9 fl (7.5-11.1); MONO % 6.4 % (3.8-10.2); NEUT % 78.8 % (42.8-82.8); PLATELET COUNT 293 10^3/uL (134-434); RBC 3.95 M/mm3 (3.60-5.2); RDW 13.8 % (11.6-15.6); WHITE BLOOD COUNT 10.6 K/mm3 (4.0-10.0)
[2023-01-03] MEDS ORDERED: SODIUM CHLORIDE IVPB ONE (13:15)
[2023-01-03] MEDS ORDERED: CARBOPLATIN IVPB ONE (13:15)
[2023-01-03 13:42] LABS: CALCIUM 8.8 mg/dL (8.5-10.1)
[2023-01-03 13:43] LABS: ALBUMIN 3.3 g/dl (3.4-5.0); BLOOD UREA NITROGEN 12.7 mg/dL (7-18)
[2023-01-03 13:44] LABS: MAGNESIUM 2.1 mg/dL (1.8-2.4)
[2023-01-03 13:46] LABS: CREATININE 0.7 mg/dL (0.55-1.3)
[2023-01-03 13:48] LABS: BILIRUBIN,TOTAL 0.2 mg/dL (0.2-1); TOT PROT 6.9 g/dl (6.4-8.2)
[2023-01-03 17:40] VITALS: BP 108/62; PULSE 102; RESP 18; TEMP 98.2
== END 2023-01-03 17:19 | disposition home or self-care (01) ==
LOC: JONCCHEMO 10:54
PROVIDERS: ATTEND Internal Medicine Hematology & Oncology
DX: Z51.11 Encounter for antineoplastic chemotherapy (principal); C50.912 Malignant neoplasm of unspecified site of left female breast
CPT/HCPCS: 36415; 80053; 83735; 85025; 96367; 96375; 96413; 96417; J1453; J2469; J9171

== ENCOUNTER 2023-01-04 13:00 | Day surgery (SDC) | payer OTHER ==
[~2023-01-04 13:00] MED LIST changes: +LORATADINE 10 MG TABLET PO ONE
[2023-01-04 17:56] VITALS: BP 117/73; PULSE 105; RESP 20; TEMP 97.7
== END 2023-01-04 15:30 | disposition home or self-care (01) ==
LOC: JONCCHEMO 13:00
PROVIDERS: ATTEND Internal Medicine Hematology & Oncology
PROC: 3E033GC Introduction of Other Therapeutic Substance into Peripheral Vein, Percutaneous Approach (ICD-10-PCS; principal; 2023-01-04)
DX: C50.912 Malignant neoplasm of unspecified site of left female breast (principal); Z76.89 Persons encountering health services in other specified circumstances
CPT/HCPCS: 96365; 96367; 96372; Q5111

== ENCOUNTER 2023-01-05 13:10 | Day surgery (SDC) | payer OTHER ==
[~2023-01-05 13:10] MED LIST changes: +DEXAMETHASONE SODIUM PHOSPHATE 4 MG, ONDANSETRON INJECTION 8 MG in SODIUM CHLORIDE 100 ML IVPB ONE; -DEXAMETHASONE SODIUM PHOSPHATE 8 MG in SODIUM CHLORIDE 50 ML IVPB ONE; -PEGFILGRASTIM-CBQV (UDENYCA) 6 MG/0.6 ML SYRINGE SQ ONE
[2023-01-05 18:30] VITALS: TEMP 97.7
[2023-01-05 18:39] VITALS: BP 121/69; PULSE 105; RESP 18
== END 2023-01-05 16:50 | disposition home or self-care (01) ==
LOC: JONCCHEMO 13:10
PROVIDERS: ATTEND Internal Medicine Hematology & Oncology
PROC: 3E033GC Introduction of Other Therapeutic Substance into Peripheral Vein, Percutaneous Approach (ICD-10-PCS; principal; 2023-01-05)
DX: C50.912 Malignant neoplasm of unspecified site of left female breast (principal); Z76.89 Persons encountering health services in other specified circumstances
CPT/HCPCS: 96365; 96367; J2405

== ENCOUNTER 2023-01-11 10:37 | Emergency (ER) | payer OTHER ==
[2023-01-11 11:03] VITALS: BP 107/80; PULSE 128; RESP 18; TEMP 98.1; BMI 29.2
[2023-01-11] MEDS ORDERED: SODIUM CHLORIDE 0.9% 500 ML INFUS.BAG IV ONE ×2 (11:22→12:07)
[2023-01-11] MEDS ORDERED: ACETAMINOPHEN 1000 MG/100 ML BAG IVPB ONE (11:22)
[2023-01-11] MEDS ORDERED: ACETAMINOPHEN INJECTION 100 ML IVPB ONE (11:41)
[2023-01-11 12:00] LABS: BASO % 1.2 % (0-2.0); EOS % 0.2 % (0-4.5); HEMATOCRIT 37.6 % (32.4-45.2); HEMOGLOBIN 12.7 GM/dL (10.7-15.3); LYMPH % 26.9 % (8-40); MCH 30.8 pg (25.7-33.7); MCHC 33.7 g/dl (32.0-36.0); MEAN CELL VOLUME 91.4 fl (80-96); MEAN PLT VOLUME 9.4 fl (7.5-11.1); MONO % 17.8 % (3.8-10.2); NEUT % 53.9 % (42.8-82.8); PLATELET COUNT 297 10^3/uL (134-434); RBC 4.12 M/mm3 (3.60-5.2); WHITE BLOOD COUNT 7.6 K/mm3 (4.0-10.0)
[2023-01-11 12:09] LABS: VENOUS O2 SATURATION 49.6 % (70-80); VENOUS PCO2 49.3 mmHg (38-52); VENOUS PH 7.361 (7.310-7.410)
[2023-01-11 12:21] LABS: CALCIUM 9.7 mg/dL (8.5-10.1)
[2023-01-11 12:22] LABS: ALBUMIN 3.6 g/dl (3.4-5.0); BLOOD UREA NITROGEN 9.6 mg/dL (7-18)
[2023-01-11 12:25] LABS: CREATININE 0.8 mg/dL (0.55-1.3)
[2023-01-11 12:26] LABS: BILIRUBIN,TOTAL 0.3 mg/dL (0.2-1); TOT PROT 7.4 g/dl (6.4-8.2)
[2023-01-11 12:30] LABS: N-TERMINAL BNP 6.3 pg/ml (5-125)
[2023-01-11 14:35] LABS: EPI CELLS 18 /uL (0-25.1); HYALINE CASTS 0 /uL (0-3.1); PH,URINE 6.5 (5.0-8.0); URINE APPEARANCE CLEAR; URINE BACTERIA 4546 /uL (0-1359); URINE BILIRUBIN NEGATIVE (NEGATIVE); URINE COLOR YELLOW; URINE GLUCOSE (UA) NEGATIVE (NEGATIVE); URINE KETONE NEGATIVE (NEGATIVE); URINE LEUK ESTERASE TRACE (NEGATIVE); URINE NITRITE NEGATIVE (NEGATIVE); URINE PROTEIN NEGATIVE (NEGATIVE); URINE RBC 14 /uL (0-23.9); URINE UROBILINOGEN 0.2 mg/dL (0.2-1.0); URINE WBC 35 /uL (0-25.8)
[2023-01-11] MEDS ORDERED: CEFTRIAXONE 1 GM in DEXTROSE 5%-WATER - 50 ML IVPB ONE (14:55)
[2023-01-11] MEDS ORDERED: CEFTRIAXONE 1 GM/50 ML BAG ONE (15:13)
== END 2023-01-11 16:00 | disposition home or self-care (01) ==
LOC: JER 10:37
PROC: 3E033GC Introduction of Other Therapeutic Substance into Peripheral Vein, Percutaneous Approach (ICD-10-PCS; principal; 2023-01-11)
PROC: 3E033GC Introduction of Other Therapeutic Substance into Peripheral Vein, Percutaneous Approach (ICD-10-PCS; 2023-01-11)
DX: N10 Acute pyelonephritis (principal); R00.0 Tachycardia, unspecified
CPT/HCPCS: 0241U-QW; 36415; 71045-TC-FY; 71275-TC; 80053; 81003; 82550; 82803; 83605; 83880; 84484; 85025; 87040; 87086; 87186; 93005; 93010; 99285-25; Q9967

== ENCOUNTER 2023-01-23 11:23 | Day surgery (SDC) | payer OTHER ==
[~2023-01-23 11:23] MED LIST changes: +DEXAMETHASONE SODIUM PHOSPHATE 12 MG in SODIUM CHLORIDE 50 ML IVPB ONE; -DEXAMETHASONE SODIUM PHOSPHATE 4 MG, ONDANSETRON INJECTION 8 MG in SODIUM CHLORIDE 100 ML IVPB ONE; +DOCETAXEL 128 MG in SODIUM CHLORIDE 250 ML IV ONE; +FOSAPREPITANT DIMEGLUMINE 150 MG in SODIUM CHLORIDE 145 ML IVPB ONE; -MAGNESIUM SULFATE IN WATER 2 GM/50 ML IVPB IVPB ONE; +PALONOSETRON HCL 0.25 MG/5 ML VIAL IVPUSH ONE; -SODIUM CHLORIDE 0.9%/KCL 20 MEQ/1,000 ML INFUS.BAG IV ONE; +SODIUM CHLORIDE 250 ML IV ONE
[2023-01-23] MEDS ORDERED: SODIUM CHLORIDE IVPB ONE ×2 (11:30→13:15)
[2023-01-23] MEDS ORDERED: CARBOPLATIN IVPB ONE ×2 (11:30→13:15)
[2023-01-23 12:29] LABS: BASO % 1.3 % (0-2.0); EOS % 0.9 % (0-4.5); HEMOGLOBIN 12.7 GM/dL (10.7-15.3); MCH 31.7 pg (25.7-33.7); MCHC 34.3 g/dl (32.0-36.0); MEAN CELL VOLUME 92.3 fl (80-96); MEAN PLT VOLUME 9.2 fl (7.5-11.1); MONO % 8.8 % (3.8-10.2); PLATELET COUNT 131 10^3/uL (134-434); RBC 4.01 M/mm3 (3.60-5.2); RDW 15.5 % (11.6-15.6); WHITE BLOOD COUNT 5.7 K/mm3 (4.0-10.0)
[2023-01-23 12:36] LABS: INR 1.13 (0.83-1.09); PROTHROMBIN TIME (PATIENT) 13.1 SEC (9.7-13.0)
[2023-01-23 12:39] LABS: ACTIVATED PTT 28.1 SECONDS (25.2-36.5)
[2023-01-23 12:55] LABS: ALBUMIN 3.7 g/dl (3.4-5.0); CALCIUM 9.5 mg/dL (8.5-10.1)
[2023-01-23 12:56] LABS: BLOOD UREA NITROGEN 10.7 mg/dL (7-18); MAGNESIUM 2.1 mg/dL (1.8-2.4)
[2023-01-23 12:58] LABS: BILIRUBIN,DIRECT 0.2 mg/dL (0.0-0.2); CREATININE 0.9 mg/dL (0.55-1.3)
[2023-01-23 13:00] LABS: BILIRUBIN,TOTAL 0.8 mg/dL (0.2-1); TOT PROT 7.1 g/dl (6.4-8.2)
[2023-01-23] MEDS ORDERED: DEXAMETHASONE SOD PHOSPHATE 4 MG/1 ML VIAL IVPB ONE (13:45)
[2023-01-23 17:17] VITALS: BP 113/75; PULSE 75; RESP 20; TEMP 98.3
[2023-01-23] MEDS ORDERED: FAMOTIDINE 20 MG TABLET PO ONE (17:19)
== END 2023-01-23 17:41 | disposition home or self-care (01) ==
LOC: JONCCHEMO 11:23
PROVIDERS: ATTEND Internal Medicine Hematology & Oncology
DX: Z51.11 Encounter for antineoplastic chemotherapy (principal); C50.912 Malignant neoplasm of unspecified site of left female breast
CPT/HCPCS: 36415; 80048; 80076; 83735; 85025; 85610; 85730; 96367; 96375; 96413; 96417; J1453; J2469; J9171

== ENCOUNTER → 2023-01-23 | Day surgery (SDC) | payer OTHER | END | disposition home or self-care (01) | LOC: JRADIR 11:22 | PROVIDERS: ATTEND Nurse Practitioner Family | PROC: 02HV33Z Insertion of Infusion Device into Superior Vena Cava, Percutaneous Approach (ICD-10-PCS; principal; 2023-01-23) | PROC: B548ZZA Ultrasonography of Superior Vena Cava, Guidance (ICD-10-PCS; 2023-01-23) | DX: C50.919 Malignant neoplasm of unspecified site of unspecified female breast (principal) | CPT/HCPCS: 36569; 77001-TC-FY; C1751 ==

== ENCOUNTER 2023-01-24 11:48 | Day surgery (SDC) | payer OTHER ==
[2023-01-24] MEDS ORDERED: DEXAMETHASONE SODIUM PHOSPHATE 8 MG in SODIUM CHLORIDE 50 ML IVPB ONE (12:15)
[2023-01-24] MEDS ORDERED: LORATADINE 10 MG TABLET PO ONE (12:15)
[2023-01-24] MEDS ORDERED: PEGFILGRASTIM-CBQV (UDENYCA) 6 MG/0.6 ML SYRINGE SQ ONE (12:15)
[2023-01-24] MEDS ORDERED: PROCHLORPERAZINE INJECTION 10 MG in SODIUM CHLORIDE 50 ML IVPB ONE (12:15)
[2023-01-24] MEDS ORDERED: MAGNESIUM SULFATE IN WATER 2 GM/50 ML IVPB IVPB ONE (12:15)
[2023-01-24] MEDS ORDERED: SODIUM CHLORIDE 0.9%/KCL 20 MEQ/1,000 ML INFUS.BAG IV ONE (12:15)
[2023-01-24 17:08] VITALS: BP 124/60; PULSE 111; RESP 20; TEMP 97.9
== END 2023-01-24 15:15 | disposition home or self-care (01) ==
LOC: JONCCHEMO 11:48
PROVIDERS: ATTEND Internal Medicine Hematology & Oncology
PROC: 3E043GC Introduction of Other Therapeutic Substance into Central Vein, Percutaneous Approach (ICD-10-PCS; principal; 2023-01-24)
PROC: 3E013GC Introduction of Other Therapeutic Substance into Subcutaneous Tissue, Percutaneous Approach (ICD-10-PCS; 2023-01-24)
DX: C50.912 Malignant neoplasm of unspecified site of left female breast (principal); Z76.89 Persons encountering health services in other specified circumstances
CPT/HCPCS: 96365; 96372; 96375; Q5111

== ENCOUNTER 2023-01-25 13:44 | Day surgery (SDC) | payer OTHER ==
[~2023-01-25 13:44] MED LIST changes: -DEXAMETHASONE SODIUM PHOSPHATE 12 MG in SODIUM CHLORIDE 50 ML IVPB ONE; +DEXAMETHASONE SODIUM PHOSPHATE 4 MG, ONDANSETRON INJECTION 8 MG in SODIUM CHLORIDE 100 ML IVPB ONE; -DOCETAXEL 128 MG in SODIUM CHLORIDE 250 ML IV ONE; -FOSAPREPITANT DIMEGLUMINE 150 MG in SODIUM CHLORIDE 145 ML IVPB ONE; +MAGNESIUM SULFATE IN WATER 2 GM/50 ML IVPB IVPB ONE; -PALONOSETRON HCL 0.25 MG/5 ML VIAL IVPUSH ONE; +SODIUM CHLORIDE 0.9%/KCL 20 MEQ/1,000 ML INFUS.BAG IV ONE; -SODIUM CHLORIDE 250 ML IV ONE
[2023-01-25 16:40] VITALS: RESP 20; TEMP 98.3
[2023-01-25 18:01] VITALS: BP 117/82; PULSE 111
== END 2023-01-25 17:00 | disposition home or self-care (01) ==
LOC: JONCCHEMO 13:44
PROVIDERS: ATTEND Internal Medicine Hematology & Oncology
PROC: 3E043GC Introduction of Other Therapeutic Substance into Central Vein, Percutaneous Approach (ICD-10-PCS; principal; 2023-01-25)
DX: C50.912 Malignant neoplasm of unspecified site of left female breast (principal); Z76.89 Persons encountering health services in other specified circumstances
CPT/HCPCS: 96365; 96367

== ENCOUNTER 2023-02-14 09:52 | Day surgery (SDC) | payer OTHER ==
[~2023-02-14 09:52] MED LIST changes: +DEXAMETHASONE SODIUM PHOSPHATE 12 MG in SODIUM CHLORIDE 50 ML IVPB ONE; -DEXAMETHASONE SODIUM PHOSPHATE 4 MG, ONDANSETRON INJECTION 8 MG in SODIUM CHLORIDE 100 ML IVPB ONE; +FOSAPREPITANT DIMEGLUMINE 150 MG in SODIUM CHLORIDE 145 ML IVPB ONE; -MAGNESIUM SULFATE IN WATER 2 GM/50 ML IVPB IVPB ONE; +PALONOSETRON HCL 0.25 MG/5 ML VIAL IVPUSH ONE; -SODIUM CHLORIDE 0.9%/KCL 20 MEQ/1,000 ML INFUS.BAG IV ONE; +SODIUM CHLORIDE 250 ML IV ONE
[2023-02-14] MEDS ORDERED: DOCETAXEL 128 MG in SODIUM CHLORIDE 250 ML IV ONE (10:00)
[2023-02-14] MEDS ORDERED: SODIUM CHLORIDE IVPB ONE (11:00)
[2023-02-14] MEDS ORDERED: CARBOPLATIN IVPB ONE (11:00)
[2023-02-14 11:12] LABS: BASO % 1.1 % (0-2.0); EOS % 0.6 % (0-4.5); HEMOGLOBIN 10.4 GM/dL (10.7-15.3); LYMPH % 37.2 % (8-40); MCH 33.1 pg (25.7-33.7); MCHC 34.7 g/dl (32.0-36.0); MEAN CELL VOLUME 95.3 fl (80-96); MEAN PLT VOLUME 8.5 fl (7.5-11.1); MONO % 8.8 % (3.8-10.2); NEUT % 52.3 % (42.8-82.8); PLATELET COUNT 240 10^3/uL (134-434); RBC 3.15 M/mm3 (3.60-5.2); RDW 20.3 % (11.6-15.6); WHITE BLOOD COUNT 5.8 K/mm3 (4.0-10.0)
[2023-02-14 11:36] LABS: CALCIUM 9.3 mg/dL (8.5-10.1)
[2023-02-14 11:37] LABS: ALBUMIN 3.5 g/dl (3.4-5.0); BLOOD UREA NITROGEN 8.8 mg/dL (7-18); MAGNESIUM 2.1 mg/dL (1.8-2.4)
[2023-02-14 11:39] LABS: BILIRUBIN,DIRECT 0.1 mg/dL (0.0-0.2)
[2023-02-14 11:40] LABS: CREATININE 0.7 mg/dL (0.55-1.3)
[2023-02-14 11:42] LABS: BILIRUBIN,TOTAL 0.4 mg/dL (0.2-1)
[2023-02-14 17:07] VITALS: TEMP 98.3
[2023-02-14 17:13] VITALS: BP 105/57; PULSE 98; RESP 20
== END 2023-02-14 15:30 | disposition home or self-care (01) ==
LOC: JONCCHEMO 09:52 → J7W 09:53 → JONCCHEMO 15:30
PROVIDERS: ATTEND Internal Medicine Hematology & Oncology
DX: Z51.11 Encounter for antineoplastic chemotherapy (principal); C50.912 Malignant neoplasm of unspecified site of left female breast
CPT/HCPCS: 36415; 80048; 80076; 83735; 85025; 96366; 96367; 96413; 96417; J1453; J2469; J9171

== ENCOUNTER → 2023-02-14 | Day surgery (SDC) | payer OTHER | END | disposition home or self-care (01) | LOC: JRADIR 10:06 | PROVIDERS: ATTEND Nurse Practitioner Family | PROC: 02HV33Z Insertion of Infusion Device into Superior Vena Cava, Percutaneous Approach (ICD-10-PCS; principal; 2023-02-14) | PROC: B518YZA Fluoroscopy of Superior Vena Cava using Other Contrast, Guidance (ICD-10-PCS; 2023-02-14) | DX: C50.919 Malignant neoplasm of unspecified site of unspecified female breast (principal) | CPT/HCPCS: 36569 ==

== ENCOUNTER 2023-02-15 16:05 | Day surgery (SDC) | payer OTHER ==
[~2023-02-15 16:05] MED LIST changes: -DEXAMETHASONE SODIUM PHOSPHATE 12 MG in SODIUM CHLORIDE 50 ML IVPB ONE; +DEXAMETHASONE SODIUM PHOSPHATE 8 MG in SODIUM CHLORIDE 50 ML IVPB ONE; -FOSAPREPITANT DIMEGLUMINE 150 MG in SODIUM CHLORIDE 145 ML IVPB ONE; +MAGNESIUM SULFATE IN WATER 2 GM/50 ML IVPB IVPB ONE; -PALONOSETRON HCL 0.25 MG/5 ML VIAL IVPUSH ONE; +PEGFILGRASTIM-CBQV (UDENYCA) 6 MG/0.6 ML SYRINGE SQ ONE; +PROCHLORPERAZINE INJECTION 10 MG in SODIUM CHLORIDE 50 ML IVPB ONE; +SODIUM CHLORIDE 0.9%/KCL 20 MEQ/1,000 ML INFUS.BAG IV ONE; -SODIUM CHLORIDE 250 ML IV ONE
[2023-02-15 18:44] VITALS: BP 127/70; PULSE 113; RESP 18; TEMP 98.1
== END 2023-02-15 18:00 | disposition home or self-care (01) ==
LOC: JONCCHEMO 16:05 → J7W 16:05 → JONCCHEMO 18:00
PROVIDERS: ATTEND Internal Medicine Hematology & Oncology
PROC: 02HV33Z Insertion of Infusion Device into Superior Vena Cava, Percutaneous Approach (ICD-10-PCS; principal; 2023-02-15)
DX: C50.912 Malignant neoplasm of unspecified site of left female breast (principal)
CPT/HCPCS: 36573; Q5111

== ENCOUNTER 2023-02-16 15:22 | Day surgery (SDC) | payer OTHER ==
[~2023-02-16 15:22] MED LIST changes: +DEXAMETHASONE SODIUM PHOSPHATE 4 MG, ONDANSETRON INJECTION 8 MG in SODIUM CHLORIDE 100 ML IVPB ONE; -DEXAMETHASONE SODIUM PHOSPHATE 8 MG in SODIUM CHLORIDE 50 ML IVPB ONE; -PEGFILGRASTIM-CBQV (UDENYCA) 6 MG/0.6 ML SYRINGE SQ ONE; -PROCHLORPERAZINE INJECTION 10 MG in SODIUM CHLORIDE 50 ML IVPB ONE
[2023-02-16 18:16] VITALS: TEMP 98.4
[2023-02-16 18:45] VITALS: BP 122/77; PULSE 105; RESP 18
== END 2023-02-16 17:50 | disposition home or self-care (01) ==
LOC: J7W 15:22 → JONCCHEMO 15:22
PROVIDERS: ATTEND Internal Medicine Hematology & Oncology
PROC: 3E043GC Introduction of Other Therapeutic Substance into Central Vein, Percutaneous Approach (ICD-10-PCS; principal; 2023-02-16)
DX: C50.912 Malignant neoplasm of unspecified site of left female breast (principal); Z76.89 Persons encountering health services in other specified circumstances
CPT/HCPCS: 96365; 96368; J2405

== ENCOUNTER 2023-10-25 12:31 | Day surgery (SDC) | payer OTHER ==
[~2023-10-25 12:31] MED LIST changes: -DEXAMETHASONE SODIUM PHOSPHATE 4 MG, ONDANSETRON INJECTION 8 MG in SODIUM CHLORIDE 100 ML IVPB ONE; +LEUPROLIDE ACETATE 3.75 MG/KIT KIT IM ONE; -LORATADINE 10 MG TABLET PO ONE; -MAGNESIUM SULFATE IN WATER 2 GM/50 ML IVPB IVPB ONE; -SODIUM CHLORIDE 0.9%/KCL 20 MEQ/1,000 ML INFUS.BAG IV ONE
[2023-10-25 13:15] LABS: BASO % 1.1 % (0-2.0); EOS % 2.9 % (0-4.5); HEMATOCRIT 41.4 % (32.4-45.2); HEMOGLOBIN 13.8 GM/dL (10.7-15.3); LYMPH % 32.8 % (8-40); MCH 31.7 pg (25.7-33.7); MCHC 33.3 g/dl (32.0-36.0); MEAN CELL VOLUME 95.1 fl (80-96); MONO % 8.2 % (3.8-10.2); PLATELET COUNT 212 10^3/uL (134-434); RBC 4.35 M/mm3 (3.60-5.2); WHITE BLOOD COUNT 5.7 K/mm3 (4.0-10.0)
[2023-10-25 13:46] LABS: POTASSIUM 4.1 mmol/L (3.5-5.1)
[2023-10-25 13:47] LABS: CALCIUM 9.6 mg/dL (8.5-10.1)
[2023-10-25 13:48] LABS: ALBUMIN 3.5 g/dl (3.4-5.0); BLOOD UREA NITROGEN 13.5 mg/dL (7-18); MAGNESIUM 2.3 mg/dL (1.8-2.4)
[2023-10-25 13:52] LABS: CREATININE 0.8 mg/dL (0.55-1.3); TOT PROT 7.4 g/dl (6.4-8.2)
[2023-10-25 13:53] LABS: BILIRUBIN,TOTAL 0.4 mg/dL (0.2-1)
[2023-10-25 15:16] VITALS: BP 123/67; PULSE 109; RESP 18; TEMP 98.4
[2023-10-27 08:06] LABS: LUTEINIZING HORMONE 61.9 mIU/mL (.)
== END 2023-10-25 13:50 | disposition home or self-care (01) ==
LOC: JONCCHEMO 12:31 → J7W 12:33 → JONCCHEMO 13:50
PROVIDERS: ATTEND Internal Medicine Hematology & Oncology
DX: Z51.11 Encounter for antineoplastic chemotherapy (principal); C50.912 Malignant neoplasm of unspecified site of left female breast
CPT/HCPCS: 36415; 71046-TC-FY; 80053; 82306; 82607; 82670; 83001; 83002; 83735; 84439; 84443; 84703; 85025; 96402; J1950

== ENCOUNTER 2023-11-22 11:30 | Day surgery (SDC) | payer OTHER ==
[2023-11-22 12:25] LABS: BASO % 1.1 % (0-2.0); EOS % 3.5 % (0-4.5); HEMATOCRIT 40.4 % (32.4-45.2); HEMOGLOBIN 13.7 GM/dL (10.7-15.3); LYMPH % 29.7 % (8-40); MCH 31.8 pg (25.7-33.7); MCHC 33.9 g/dl (32.0-36.0); MEAN CELL VOLUME 93.6 fl (80-96); MONO % 8.3 % (3.8-10.2); NEUT % 57.4 % (42.8-82.8); PLATELET COUNT 211 10^3/uL (134-434); RBC 4.32 M/mm3 (3.60-5.2); RDW 13.4 % (11.6-15.6); WHITE BLOOD COUNT 5.4 K/mm3 (4.0-10.0)
[2023-11-22] MEDS: LEUPROLIDE ACETATE 3.75 MG/KIT KIT IM ONE (12:46)
[2023-11-22 12:55] LABS: POTASSIUM 3.9 mmol/L (3.5-5.1)
[2023-11-22 12:58] LABS: ALBUMIN 3.4 g/dl (3.4-5.0); CALCIUM 9.6 mg/dL (8.5-10.1); MAGNESIUM 2.1 mg/dL (1.8-2.4)
[2023-11-22 12:59] LABS: BLOOD UREA NITROGEN 15.2 mg/dL (7-18)
[2023-11-22 13:01] LABS: CREATININE 0.8 mg/dL (0.55-1.3)
[2023-11-22 13:03] LABS: BILIRUBIN,TOTAL 0.4 mg/dL (0.2-1)
[2023-11-22 17:43] VITALS: BP 112/71; PULSE 87; RESP 18; TEMP 98
[2023-11-23 08:06] LABS: FOLLICLE STIMULATING HORMONE 6.5 mIU/mL (.); LUTEINIZING HORMONE 3.6 mIU/mL (.)
== END 2023-11-22 13:10 | disposition home or self-care (01) ==
LOC: JONCCHEMO 11:30 → J7W 11:31 → JONCCHEMO 13:10
PROVIDERS: ATTEND Internal Medicine Hematology & Oncology
DX: Z51.11 Encounter for antineoplastic chemotherapy (principal); C50.912 Malignant neoplasm of unspecified site of left female breast
CPT/HCPCS: 36415; 80053; 82306; 82670; 83001; 83002; 83735; 84439; 84443; 84703; 85025; 96402; J1950

== ENCOUNTER 2023-12-20 11:34 | Day surgery (SDC) | payer OTHER ==
[2023-12-20 12:25] LABS: BASO % 1.3 % (0-2.0); EOS % 2.2 % (0-4.5); HEMATOCRIT 40.9 % (32.4-45.2); HEMOGLOBIN 13.5 GM/dL (10.7-15.3); LYMPH % 33.5 % (8-40); MCH 31.2 pg (25.7-33.7); MEAN CELL VOLUME 94.5 fl (80-96); MEAN PLT VOLUME 9.7 fl (7.5-11.1); MONO % 5.7 % (3.8-10.2); NEUT % 57.3 % (42.8-82.8); PLATELET COUNT 209 10^3/uL (134-434); RBC 4.33 M/mm3 (3.60-5.2); RDW 13.2 % (11.6-15.6)
[2023-12-20] MEDS: ACETAMINOPHEN 500 MG TABLET (FP) PO ONE (12:38)
[2023-12-20] MEDS: LEUPROLIDE ACETATE 3.75 MG/KIT KIT IM ONE (12:40)
[2023-12-20 12:52] LABS: POTASSIUM 4.1 mmol/L (3.5-5.1)
[2023-12-20 12:54] LABS: ALBUMIN 3.8 g/dl (3.4-5.0); BLOOD UREA NITROGEN 15.1 mg/dL (7-18); CALCIUM 9.3 mg/dL (8.5-10.1); MAGNESIUM 2.2 mg/dL (1.8-2.4)
[2023-12-20 12:57] VITALS: RESP 18
[2023-12-20 12:58] LABS: CREATININE 0.7 mg/dL (0.55-1.3)
[2023-12-20 12:59] LABS: BILIRUBIN,TOTAL 0.6 mg/dL (0.2-1); TOT PROT 7.4 g/dl (6.4-8.2)
[2023-12-20 13:10] VITALS: BP 134/75; PULSE 84; TEMP 98.1
[2023-12-22 08:12] LABS: FOLLICLE STIMULATING HORMONE 13.6 mIU/mL (.); LUTEINIZING HORMONE 0.5 mIU/mL (.)
== END 2023-12-20 13:15 | disposition home or self-care (01) ==
LOC: JONCCHEMO 11:34
PROVIDERS: ATTEND Internal Medicine Hematology & Oncology
DX: Z51.11 Encounter for antineoplastic chemotherapy (principal); C50.912 Malignant neoplasm of unspecified site of left female breast
CPT/HCPCS: 36415; 80053; 82306; 82670; 83001; 83002; 83735; 84439; 84443; 84703; 85025; 86376; 86800; 96402; J1950

== ENCOUNTER 2024-01-17 11:09 | Day surgery (SDC) | payer OTHER ==
[2024-01-17] MEDS: LEUPROLIDE ACETATE 3.75 MG/KIT KIT IM ONE (11:54)
[2024-01-17 11:58] LABS: BASO % 0.9 % (0-2.0); EOS % 2.3 % (0-4.5); HEMATOCRIT 40.5 % (32.4-45.2); HEMOGLOBIN 13.3 GM/dL (10.7-15.3); LYMPH % 31.4 % (8-40); MCH 31.2 pg (25.7-33.7); MCHC 32.8 g/dl (32.0-36.0); MEAN CELL VOLUME 95.2 fl (80-96); MEAN PLT VOLUME 9.3 fl (7.5-11.1); NEUT % 58.4 % (42.8-82.8); PLATELET COUNT 204 10^3/uL (134-434); RBC 4.25 M/mm3 (3.60-5.2); RDW 14.4 % (11.6-15.6); WHITE BLOOD COUNT 6.1 K/mm3 (4.0-10.0)
[2024-01-17 12:22] LABS: POTASSIUM 3.9 mmol/L (3.5-5.1)
[2024-01-17 12:24] LABS: CALCIUM 9.6 mg/dL (8.5-10.1)
[2024-01-17 12:25] LABS: ALBUMIN 3.7 g/dl (3.4-5.0); BLOOD UREA NITROGEN 9.1 mg/dL (7-18); MAGNESIUM 2.4 mg/dL (1.8-2.4)
[2024-01-17 12:27] LABS: CREATININE 0.8 mg/dL (0.55-1.3)
[2024-01-17 12:29] LABS: BILIRUBIN,TOTAL 0.9 mg/dL (0.2-1); TOT PROT 7.7 g/dl (6.4-8.2)
[2024-01-17 13:24] VITALS: BP 115/65; PULSE 90; RESP 18; TEMP 97.9
[2024-01-18 23:07] LABS: FOLLICLE STIMULATING HORMONE 15.6 mIU/mL (.); LUTEINIZING HORMONE < 0.3 mIU/mL (.)
== END 2024-01-17 12:15 | disposition home or self-care (01) ==
LOC: JONCCHEMO 11:09 → J7W 11:10 → JONCCHEMO 12:15
PROVIDERS: ATTEND Internal Medicine Hematology & Oncology
DX: Z51.11 Encounter for antineoplastic chemotherapy (principal); C50.912 Malignant neoplasm of unspecified site of left female breast
CPT/HCPCS: 36415; 80053; 82306; 82670; 83001; 83002; 83735; 84443; 84703; 85025; 96402; J1950

== ENCOUNTER 2024-02-14 11:04 | Day surgery (SDC) | payer OTHER ==
[2024-02-14] MEDS: LEUPROLIDE ACETATE 3.75 MG/KIT KIT IM ONE (12:02)
[2024-02-14 12:03] LABS: BASO % 1.1 % (0-2.0); EOS % 4.2 % (0-4.5); HEMATOCRIT 38.4 % (32.4-45.2); HEMOGLOBIN 13.1 GM/dL (10.7-15.3); LYMPH % 33.8 % (8-40); MEAN CELL VOLUME 94.1 fl (80-96); MEAN PLT VOLUME 9.3 fl (7.5-11.1); MONO % 7.5 % (3.8-10.2); NEUT % 53.4 % (42.8-82.8); PLATELET COUNT 235 10^3/uL (134-434); RBC 4.08 M/mm3 (3.60-5.2); RDW 14.5 % (11.6-15.6); WHITE BLOOD COUNT 5.1 K/mm3 (4.0-10.0)
[2024-02-14 12:21] LABS: CHLORIDE 108 mmol/L (98-107); POTASSIUM 4.3 mmol/L (3.5-5.1); SODIUM 136 mmol/L (136-145)
[2024-02-14 12:23] LABS: ALBUMIN 3.5 g/dl (3.4-5.0); ANION GAP 3 mmol/L (4-13); BLOOD UREA NITROGEN 11.6 mg/dL (7-18); CALCIUM 9.6 mg/dL (8.5-10.1); CO2 25 mmol/L (21-32); GLUCOSE,RANDOM 86 mg/dL (74-106); MAGNESIUM 2.2 mg/dL (1.8-2.4)
[2024-02-14 12:26] LABS: CREATININE 0.8 mg/dL (0.55-1.3); SGOT/AST 16 U/L (15-37); SGPT/ALT 25 U/L (13-61)
[2024-02-14 12:28] LABS: BILIRUBIN,TOTAL 0.5 mg/dL (0.2-1); TOT PROT 7.2 g/dl (6.4-8.2)
[2024-02-14 12:29] LABS: ALK PHOS 78 U/L (45-117)
[2024-02-14 18:29] VITALS: BP 124/87; PULSE 95; RESP 20; TEMP 98.3
[2024-02-21 20:07] LABS: FOLLICLE STIMULATING HORMONE 14.4 mIU/mL (.); LUTEINIZING HORMONE 0.3 mIU/mL (.)
== END 2024-02-14 12:30 | disposition home or self-care (01) ==
LOC: JONCCHEMO 11:04
PROVIDERS: ATTEND Internal Medicine Hematology & Oncology
DX: Z51.11 Encounter for antineoplastic chemotherapy (principal); C50.912 Malignant neoplasm of unspecified site of left female breast
CPT/HCPCS: 36415; 80053; 82306; 82670; 83001; 83002; 83735; 84703; 85025; 96402; J1950

== ENCOUNTER 2024-03-11 20:04 | Emergency (ER) | payer OTHER ==
[2024-03-11 20:10] VITALS: BMI 26.9
[2024-03-11 22:15] LABS: BASO % 1.1 % (0-2.0); EOS % 1.6 % (0-4.5); HEMATOCRIT 38.9 % (32.4-45.2); HEMOGLOBIN 13.4 GM/dL (10.7-15.3); LYMPH % 24.6 % (8-40); MCH 32.3 pg (25.7-33.7); MCHC 34.4 g/dl (32.0-36.0); MEAN CELL VOLUME 93.9 fl (80-96); MEAN PLT VOLUME 8.6 fl (7.5-11.1); MONO % 6.6 % (3.8-10.2); NEUT % 66.1 % (42.8-82.8); PLATELET COUNT 281 10^3/uL (134-434); RBC 4.15 M/mm3 (3.60-5.2); RDW 14.2 % (11.6-15.6); WHITE BLOOD COUNT 8.8 K/mm3 (4.0-10.0)
[2024-03-11 22:22] LABS: INR 0.98 (0.83-1.09); PROTHROMBIN TIME (PATIENT) 11.1 SEC (9.7-13.0)
[2024-03-11 22:33] LABS: CHLORIDE 105 mmol/L (98-107); POTASSIUM 4.5 mmol/L (3.5-5.1); SODIUM 136 mmol/L (136-145)
[2024-03-11] MEDS ORDERED: MIDAZOLAM HCL 2 MG/2 ML SINGLE DOSE VIAL ONE (22:33)
[2024-03-11 22:35] LABS: CALCIUM 9.8 mg/dL (8.5-10.1)
[2024-03-11 22:36] LABS: ALBUMIN 3.7 g/dl (3.4-5.0); ANION GAP 3 mmol/L (4-13); BLOOD UREA NITROGEN 11.6 mg/dL (7-18); CO2 28 mmol/L (21-32); GLUCOSE,RANDOM 96 mg/dL (74-106)
[2024-03-11] MEDS: MIDAZOLAM HCL 2 MG/2 ML SINGLE DOSE VIAL IVPUSH ONE (22:36)
[2024-03-11 22:39] LABS: CREATININE 0.7 mg/dL (0.55-1.3); SGOT/AST 20 U/L (15-37); SGPT/ALT 23 U/L (13-61)
[2024-03-11 22:41] LABS: BILIRUBIN,TOTAL 0.5 mg/dL (0.2-1); TOT PROT 7.8 g/dl (6.4-8.2)
[2024-03-11 22:42] LABS: ALK PHOS 92 U/L (45-117)
[2024-03-12 00:49] VITALS: BP 122/76; PULSE 80; RESP 18; TEMP 98.2
== END 2024-03-12 00:51 | disposition home or self-care (01) ==
LOC: JER 20:04
PROC: 3E033GC Introduction of Other Therapeutic Substance into Peripheral Vein, Percutaneous Approach (ICD-10-PCS; principal; 2024-03-11)
DX: R53.1 Weakness (principal); R51.9 Headache, unspecified; R20.0 Anesthesia of skin
CPT/HCPCS: 36415; 70450-TC; 80053; 82550; 82962; 84484; 84703; 85025; 85610; 93005; 93010; 99285-25

== ENCOUNTER 2024-03-13 11:35 | Day surgery (SDC) | payer OTHER ==
[2024-03-13] MEDS: LEUPROLIDE ACETATE 3.75 MG/KIT KIT IM ONE (11:54)
[2024-03-13 14:00] VITALS: BP 119/85; PULSE 82; RESP 18; TEMP 98.1
== END 2024-03-13 12:25 | disposition home or self-care (01) ==
LOC: JONCCHEMO 11:35 → J7W 11:36 → JONCCHEMO 12:25
PROVIDERS: ATTEND Internal Medicine Hematology & Oncology
DX: Z51.11 Encounter for antineoplastic chemotherapy (principal); C50.912 Malignant neoplasm of unspecified site of left female breast
CPT/HCPCS: 96402; J1950

== ENCOUNTER 2024-04-10 10:46 | Day surgery (SDC) | payer OTHER ==
[2024-04-10] MEDS: LEUPROLIDE ACETATE 3.75 MG/KIT KIT IM ONE (11:04)
[2024-04-10 11:22] LABS: BASO % 1.1 % (0-2.0); EOS % 2.8 % (0-4.5); HEMATOCRIT 38.1 % (32.4-45.2); HEMOGLOBIN 12.9 GM/dL (10.7-15.3); LYMPH % 36.8 % (8-40); MCH 32.1 pg (25.7-33.7); MCHC 33.8 g/dl (32.0-36.0); MEAN CELL VOLUME 95.1 fl (80-96); MEAN PLT VOLUME 8.9 fl (7.5-11.1); MONO % 7.9 % (3.8-10.2); NEUT % 51.4 % (42.8-82.8); PLATELET COUNT 223 10^3/uL (134-434); RDW 13.9 % (11.6-15.6); WHITE BLOOD COUNT 5.3 K/mm3 (4.0-10.0)
[2024-04-10 11:45] LABS: CHLORIDE 108 mmol/L (98-107); POTASSIUM 4.3 mmol/L (3.5-5.1); SODIUM 140 mmol/L (136-145)
[2024-04-10 11:49] LABS: ALBUMIN 3.4 g/dl (3.4-5.0); ANION GAP 6 mmol/L (4-13); BLOOD UREA NITROGEN 17.8 mg/dL (7-18); CALCIUM 9.2 mg/dL (8.5-10.1); CO2 26 mmol/L (21-32); GLUCOSE,RANDOM 93 mg/dL (74-106); MAGNESIUM 2.2 mg/dL (1.8-2.4)
[2024-04-10 11:52] LABS: CREATININE 0.7 mg/dL (0.55-1.3); SGOT/AST 18 U/L (15-37); SGPT/ALT 29 U/L (13-61)
[2024-04-10 11:53] LABS: BILIRUBIN,TOTAL 0.5 mg/dL (0.2-1)
[2024-04-10 11:54] LABS: TOT PROT 7.4 g/dl (6.4-8.2)
[2024-04-10 11:55] LABS: ALK PHOS 88 U/L (45-117)
[2024-04-10 14:38] VITALS: BP 125/75; PULSE 89; RESP 20; TEMP 98.2
[2024-04-11 08:10] LABS: FOLLICLE STIMULATING HORMONE 17.5 mIU/mL (.); LUTEINIZING HORMONE < 0.3 mIU/mL (.)
== END 2024-04-10 11:19 | disposition home or self-care (01) ==
LOC: JONCCHEMO 10:46 → J7W 10:47 → JONCCHEMO 11:19
PROVIDERS: ATTEND Internal Medicine Hematology & Oncology
DX: Z51.11 Encounter for antineoplastic chemotherapy (principal); C50.912 Malignant neoplasm of unspecified site of left female breast
CPT/HCPCS: 36415; 80053; 82306; 82670; 83001; 83002; 83735; 84703; 85025; 96402; J1950

== ENCOUNTER 2024-05-08 11:21 | Day surgery (SDC) | payer OTHER ==
[2024-05-08] MEDS: LEUPROLIDE ACETATE 3.75 MG/KIT KIT IM ONE (11:33)
[2024-05-08 12:05] LABS: EOS % 2.1 % (0-4.5); HEMATOCRIT 37.9 % (32.4-45.2); LYMPH % 31.8 % (8-40); MCH 32.1 pg (25.7-33.7); MCHC 34.3 g/dl (32.0-36.0); MEAN CELL VOLUME 93.5 fl (80-96); MEAN PLT VOLUME 8.9 fl (7.5-11.1); MONO % 7.4 % (3.8-10.2); NEUT % 57.7 % (42.8-82.8); PLATELET COUNT 229 10^3/uL (134-434); RBC 4.05 M/mm3 (3.60-5.2); RDW 13.1 % (11.6-15.6)
[2024-05-08 12:22] LABS: CHLORIDE 108 mmol/L (98-107); POTASSIUM 4.1 mmol/L (3.5-5.1); SODIUM 139 mmol/L (136-145)
[2024-05-08 12:24] LABS: CALCIUM 9.8 mg/dL (8.5-10.1)
[2024-05-08 12:25] LABS: ALBUMIN 3.6 g/dl (3.4-5.0); ANION GAP 6 mmol/L (4-13); BLOOD UREA NITROGEN 16.4 mg/dL (7-18); CO2 24 mmol/L (21-32); GLUCOSE,RANDOM 87 mg/dL (74-106); MAGNESIUM 2.3 mg/dL (1.8-2.4)
[2024-05-08 12:28] LABS: CREATININE 0.8 mg/dL (0.55-1.3); SGOT/AST 16 U/L (15-37); SGPT/ALT 20 U/L (13-61)
[2024-05-08 12:30] LABS: BILIRUBIN,TOTAL 0.6 mg/dL (0.2-1); TOT PROT 7.3 g/dl (6.4-8.2)
[2024-05-08 12:31] LABS: ALK PHOS 79 U/L (45-117)
[2024-05-08 13:03] VITALS: BP 118/86; PULSE 94; RESP 18; TEMP 98.2
[2024-05-09 08:11] LABS: FOLLICLE STIMULATING HORMONE 21.2 mIU/mL (.); LUTEINIZING HORMONE < 0.3 mIU/mL (.)
[2024-06-05] MEDS ORDERED: LEUPROLIDE ACETATE 3.75 MG/KIT KIT IM ONE (10:00)
== END 2024-05-08 11:55 | disposition home or self-care (01) ==
LOC: JONCCHEMO 11:21 → J7W 11:23 → JONCCHEMO 11:55
PROVIDERS: ATTEND Internal Medicine Hematology & Oncology
DX: Z51.11 Encounter for antineoplastic chemotherapy (principal); C50.912 Malignant neoplasm of unspecified site of left female breast
CPT/HCPCS: 36415; 80053; 82085; 82306; 82550; 82670; 83001; 83002; 83735; 84703; 85025; 86038; 86431; 96401; 96402; J1950

== ENCOUNTER 2024-05-10 15:01 | Emergency (ER) | payer OTHER ==
[2024-05-10 15:11] VITALS: BP 120/84; PULSE 90; RESP 18; TEMP 97.6; BMI 26.5
[2024-05-10] MEDS ORDERED: CYCLOBENZAPRINE HCL 10 MG TABLET (FP) ONE (15:35)
[2024-05-10] MEDS ORDERED: LIDOCAINE 4% PATCH TP ONE (15:35)
[2024-05-10] MEDS ORDERED: ACETAMINOPHEN 500 MG TABLET (FP) ONE (15:35)
[2024-05-10] MEDS ORDERED: IBUPROFEN 400 MG TABLET (FP) PO ONE (15:35)
[2024-05-10] MEDS: CYCLOBENZAPRINE HCL 10 MG TABLET (FP) PO ONE (15:41)
[2024-05-10] MEDS: LIDOCAINE 4% PATCH TP ONE (15:41)
[2024-05-10] MEDS: IBUPROFEN 400 MG TABLET (FP) PO ONE (15:41)
[2024-05-10] MEDS: ACETAMINOPHEN 500 MG TABLET (FP) PO ONE (15:41)
[2024-05-10] MEDS ORDERED: LIDOCAINE PATCH REMOVAL MC SCH (22:00)
== END 2024-05-10 17:38 | disposition home or self-care (01) ==
LOC: JERFT 15:01
DX: M54.50 Low back pain, unspecified (principal); M54.6 Pain in thoracic spine; M54.2 Cervicalgia; V49.40XA Driver injured in collision with unspecified motor vehicles in traffic accident, initial encounter; Y92.410 Unspecified street and highway as the place of occurrence of the external cause
CPT/HCPCS: 72050-TC-FY; 72100-TC-FY; 99284-25

== ENCOUNTER → 2024-05-23 | Day surgery (SDC) | payer OTHER | END | disposition home or self-care (01) | LOC: JRADIR 09:35 | PROVIDERS: ATTEND Internal Medicine Endocrinology, Diabetes & Metabolism | PROC: 0GBG3ZX Excision of Left Thyroid Gland Lobe, Percutaneous Approach, Diagnostic (ICD-10-PCS; principal; 2024-05-23) | DX: E04.1 Nontoxic single thyroid nodule (principal) | CPT/HCPCS: 10005; 76942; 88173; 88305-TC ==

== ENCOUNTER 2024-06-05 11:16 | Day surgery (SDC) | payer OTHER ==
[2024-06-05 12:00] LABS: BASO % 1.5 % (0-2.0); EOS % 4.2 % (0-4.5); HEMATOCRIT 36.8 % (32.4-45.2); HEMOGLOBIN 12.5 GM/dL (10.7-15.3); LYMPH % 35.3 % (8-40); MCH 31.6 pg (25.7-33.7); MCHC 34.1 g/dl (32.0-36.0); MEAN CELL VOLUME 92.7 fl (80-96); MEAN PLT VOLUME 9.2 fl (7.5-11.1); MONO % 7.5 % (3.8-10.2); NEUT % 51.5 % (42.8-82.8); PLATELET COUNT 207 10^3/uL (134-434); RBC 3.97 M/mm3 (3.60-5.2); RDW 13.5 % (11.6-15.6); WHITE BLOOD COUNT 4.8 K/mm3 (4.0-10.0)
[2024-06-05 12:26] LABS: POTASSIUM 4.2 mmol/L (3.5-5.1)
[2024-06-05 12:27] VITALS: BP 121/91; PULSE 94; RESP 18; TEMP 98.2
[2024-06-05 12:28] LABS: ALBUMIN 3.5 g/dl (3.4-5.0); CALCIUM 9.5 mg/dL (8.5-10.1)
[2024-06-05 12:32] LABS: CREATININE 0.7 mg/dL (0.55-1.3)
[2024-06-05 12:33] LABS: BILIRUBIN,TOTAL 0.3 mg/dL (0.2-1)
[2024-06-05] MEDS: LEUPROLIDE ACETATE 3.75 MG/KIT KIT IM ONE (12:40)
[2024-06-06 12:08] LABS: FOLLICLE STIMULATING HORMONE 19.9 mIU/mL (.); LUTEINIZING HORMONE < 0.3 mIU/mL (.)
== END 2024-06-05 13:00 | disposition home or self-care (01) ==
LOC: JONCCHEMO 11:16 → J7W 11:23 → JONCCHEMO 13:00
PROVIDERS: ATTEND Internal Medicine Hematology & Oncology
DX: Z51.11 Encounter for antineoplastic chemotherapy (principal); C50.912 Malignant neoplasm of unspecified site of left female breast
CPT/HCPCS: 36415; 71046-TC-FY; 80053; 82306; 82670; 83001; 83002; 83735; 84703; 85025; 96401; J1950

== ENCOUNTER 2024-07-03 11:45 | Day surgery (SDC) | payer OTHER ==
[2024-07-03 12:08] LABS: BASO % 1.2 % (0-2.0); EOS % 5.7 % (0-4.5); HEMATOCRIT 37.7 % (32.4-45.2); HEMOGLOBIN 12.6 GM/dL (10.7-15.3); LYMPH % 33.6 % (8-40); MCH 31.2 pg (25.7-33.7); MCHC 33.4 g/dl (32.0-36.0); MEAN CELL VOLUME 93.7 fl (80-96); MONO % 7.2 % (3.8-10.2); NEUT % 52.3 % (42.8-82.8); PLATELET COUNT 215 10^3/uL (134-434); RBC 4.02 M/mm3 (3.60-5.2); RDW 13.9 % (11.6-15.6); WHITE BLOOD COUNT 6.1 K/mm3 (4.0-10.0)
[2024-07-03] MEDS: LEUPROLIDE ACETATE 3.75 MG/KIT KIT IM ONE (12:10)
[2024-07-03 12:35] LABS: CHLORIDE 110 mmol/L (98-107); POTASSIUM 3.9 mmol/L (3.5-5.1); SODIUM 139 mmol/L (136-145)
[2024-07-03 12:37] LABS: CALCIUM 9.2 mg/dL (8.5-10.1); GLUCOSE,RANDOM 108 mg/dL (74-106)
[2024-07-03 12:38] LABS: ALBUMIN 3.5 g/dl (3.4-5.0); ANION GAP 6 mmol/L (4-13); BLOOD UREA NITROGEN 14.2 mg/dL (7-18); CO2 24 mmol/L (21-32); MAGNESIUM 2.1 mg/dL (1.8-2.4)
[2024-07-03 12:41] LABS: CREATININE 0.7 mg/dL (0.55-1.3); SGOT/AST 13 U/L (15-37); SGPT/ALT 21 U/L (13-61)
[2024-07-03 12:42] LABS: BILIRUBIN,TOTAL 0.5 mg/dL (0.2-1); TOT PROT 7.1 g/dl (6.4-8.2)
[2024-07-03 12:44] LABS: ALK PHOS 84 U/L (45-117)
[2024-07-03 18:14] VITALS: BP 125/92; PULSE 90; RESP 20; TEMP 98
[2024-07-05 08:12] LABS: FOLLICLE STIMULATING HORMONE 17.4 mIU/mL (.); LUTEINIZING HORMONE < 0.3 mIU/mL (.)
== END 2024-07-03 12:20 | disposition home or self-care (01) ==
LOC: JONCCHEMO 11:45 → J7W 11:46 → JONCCHEMO 12:20
PROVIDERS: ATTEND Internal Medicine Hematology & Oncology
DX: Z51.11 Encounter for antineoplastic chemotherapy (principal); C50.912 Malignant neoplasm of unspecified site of left female breast
CPT/HCPCS: 36415; 80053; 82306; 82670; 83001; 83002; 83735; 84703; 85025; 96401; J1950

== ENCOUNTER 2024-07-31 11:42 | Day surgery (SDC) | payer OTHER ==
[2024-07-31 12:30] LABS: BASO % 1.1 % (0-2.0); EOS % 2.9 % (0-4.5); HEMATOCRIT 38.4 % (32.4-45.2); HEMOGLOBIN 12.9 GM/dL (10.7-15.3); LYMPH % 33.3 % (8-40); MCH 31.2 pg (25.7-33.7); MCHC 33.4 g/dl (32.0-36.0); MEAN CELL VOLUME 93.3 fl (80-96); MEAN PLT VOLUME 9.4 fl (7.5-11.1); MONO % 7.1 % (3.8-10.2); NEUT % 55.6 % (42.8-82.8); PLATELET COUNT 216 10^3/uL (134-434); RBC 4.12 M/mm3 (3.60-5.2); RDW 13.7 % (11.6-15.6)
[2024-07-31] MEDS: LEUPROLIDE ACETATE 3.75 MG/KIT KIT IM ONE (12:33)
[2024-07-31 12:50] LABS: CHLORIDE 108 mmol/L (98-107); SODIUM 140 mmol/L (136-145)
[2024-07-31 12:52] LABS: CALCIUM 9.6 mg/dL (8.5-10.1)
[2024-07-31 12:53] LABS: ANION GAP 6 mmol/L (4-13); BLOOD UREA NITROGEN 10.2 mg/dL (7-18); CO2 26 mmol/L (21-32); GLUCOSE,RANDOM 92 mg/dL (74-106); MAGNESIUM 2.2 mg/dL (1.8-2.4)
[2024-07-31 12:56] LABS: ALBUMIN 3.8 g/dl (3.4-5.0); CREATININE 0.7 mg/dL (0.55-1.3); SGPT/ALT 19 U/L (13-61)
[2024-07-31 12:57] LABS: BILIRUBIN,TOTAL 0.4 mg/dL (0.2-1); TOT PROT 7.3 g/dl (6.4-8.2)
[2024-07-31 12:59] LABS: ALK PHOS 85 U/L (45-117); SGOT/AST 15 U/L (15-37)
[2024-07-31 14:47] VITALS: BP 126/85; PULSE 96; RESP 18; TEMP 98.4
[2024-08-01 08:11] LABS: LUTEINIZING HORMONE < 0.3 mIU/mL (.)
== END 2024-07-31 12:45 | disposition home or self-care (01) ==
LOC: JONCCHEMO 11:42 → J7W 11:42 → JONCCHEMO 12:45
PROVIDERS: ATTEND Internal Medicine Hematology & Oncology
DX: Z51.11 Encounter for antineoplastic chemotherapy (principal); C50.912 Malignant neoplasm of unspecified site of left female breast
CPT/HCPCS: 36415; 80053; 82306; 82670; 83001; 83002; 83735; 84703; 85025; 96402; J1950

== ENCOUNTER 2024-09-25 11:30 | Day surgery (SDC) | payer OTHER ==
[2024-09-25 12:02] LABS: BASO % 0.9 % (0-2.0); EOS % 4.4 % (0-4.5); HEMATOCRIT 36.9 % (32.4-45.2); HEMOGLOBIN 12.5 GM/dL (10.7-15.3); LYMPH % 36.9 % (8-40); MCH 31.5 pg (25.7-33.7); MCHC 33.9 g/dl (32.0-36.0); MEAN CELL VOLUME 92.8 fl (80-96); MEAN PLT VOLUME 8.9 fl (7.5-11.1); MONO % 6.8 % (3.8-10.2); PLATELET COUNT 221 10^3/uL (134-434); RBC 3.98 M/mm3 (3.60-5.2); RDW 13.6 % (11.6-15.6); WHITE BLOOD COUNT 5.9 K/mm3 (4.0-10.0)
[2024-09-25] MEDS: LEUPROLIDE ACETATE 3.75 MG/KIT KIT IM ONE (12:04)
[2024-09-25 12:28] LABS: POTASSIUM 3.9 mmol/L (3.5-5.1)
[2024-09-25 12:30] VITALS: BP 125/76; PULSE 104; RESP 20; TEMP 97.9
[2024-09-25 12:31] LABS: ALBUMIN 3.8 g/dl (3.4-5.0); CALCIUM 9.6 mg/dL (8.5-10.1); MAGNESIUM 2.1 mg/dL (1.8-2.4)
[2024-09-25 12:34] LABS: CREATININE 0.7 mg/dL (0.55-1.3)
[2024-09-25 12:36] LABS: BILIRUBIN,TOTAL 0.4 mg/dL (0.2-1); TOT PROT 7.2 g/dl (6.4-8.2)
== END 2024-09-25 15:00 | disposition home or self-care (01) ==
LOC: JONCCHEMO 11:30 → J7W 11:38 → JONCCHEMO 15:00
PROVIDERS: ATTEND Internal Medicine Hematology & Oncology
PROC: 3E013GC Introduction of Other Therapeutic Substance into Subcutaneous Tissue, Percutaneous Approach (ICD-10-PCS; principal; 2024-09-25)
DX: C50.919 Malignant neoplasm of unspecified site of unspecified female breast (principal); Z76.89 Persons encountering health services in other specified circumstances
CPT/HCPCS: 36415; 80053; 82306; 82670; 83735; 84703; 85025; 96372; J1950

== ENCOUNTER 2024-10-23 11:52 | Day surgery (SDC) | payer OTHER ==
[2024-10-23] MEDS: LEUPROLIDE ACETATE 3.75 MG/KIT KIT IM ONE (12:16)
[2024-10-23 12:33] LABS: BASO % 1.2 % (0-2.0); EOS % 4.2 % (0-4.5); HEMATOCRIT 39.8 % (32.4-45.2); HEMOGLOBIN 12.8 GM/dL (10.7-15.3); LYMPH % 29.8 % (8-40); MCH 30.4 pg (25.7-33.7); MCHC 32.1 g/dl (32.0-36.0); MEAN CELL VOLUME 94.8 fl (80-96); MONO % 7.5 % (3.8-10.2); NEUT % 57.3 % (42.8-82.8); PLATELET COUNT 258 10^3/uL (134-434); RDW 14.2 % (11.6-15.6)
[2024-10-23 12:56] LABS: CHLORIDE 108 mmol/L (98-107); POTASSIUM 3.7 mmol/L (3.5-5.1); SODIUM 140 mmol/L (136-145)
[2024-10-23 12:57] LABS: CALCIUM 9.5 mg/dL (8.5-10.1)
[2024-10-23 12:58] LABS: ALBUMIN 3.5 g/dl (3.4-5.0); ANION GAP 7 mmol/L (4-13); BLOOD UREA NITROGEN 18.2 mg/dL (7-18); CO2 25 mmol/L (21-32); GLUCOSE,RANDOM 113 mg/dL (74-106); MAGNESIUM 2.1 mg/dL (1.8-2.4)
[2024-10-23 13:01] LABS: CREATININE 0.8 mg/dL (0.55-1.3); SGOT/AST 16 U/L (15-37); SGPT/ALT 22 U/L (13-61)
[2024-10-23 13:02] LABS: BILIRUBIN,TOTAL 0.4 mg/dL (0.2-1); TOT PROT 7.3 g/dl (6.4-8.2)
[2024-10-23 13:03] LABS: ALK PHOS 89 U/L (45-117)
[2024-10-23 14:56] VITALS: BP 119/73; PULSE 45; RESP 20; TEMP 98.2
== END 2024-10-23 12:30 | disposition home or self-care (01) ==
LOC: JONCCHEMO 11:52 → J7W 11:55 → JONCCHEMO 12:30
PROVIDERS: ATTEND Internal Medicine Hematology & Oncology
PROC: 3E013GC Introduction of Other Therapeutic Substance into Subcutaneous Tissue, Percutaneous Approach (ICD-10-PCS; principal; 2024-10-23)
DX: C50.919 Malignant neoplasm of unspecified site of unspecified female breast (principal)
CPT/HCPCS: 36415; 80053; 82306; 82378; 82670; 83735; 84703; 85025; 86300; 96372; J1950

== ENCOUNTER 2024-11-20 11:59 | Day surgery (SDC) | payer OTHER ==
[2024-11-20] MEDS: LEUPROLIDE ACETATE 3.75 MG/KIT KIT IM ONE (12:43)
[2024-11-20 14:23] LABS: BASO % 0.7 % (0-2.0); EOS % 3.2 % (0-4.5); HEMOGLOBIN 13.4 GM/dL (10.7-15.3); LYMPH % 32.9 % (8-40); MCH 31.4 pg (25.7-33.7); MCHC 34.4 g/dl (32.0-36.0); MEAN CELL VOLUME 91.4 fl (80-96); MEAN PLT VOLUME 9.3 fl (7.5-11.1); NEUT % 54.2 % (42.8-82.8); PLATELET COUNT 236 10^3/uL (134-434); RBC 4.27 M/mm3 (3.60-5.2); RDW 13.9 % (11.6-15.6); WHITE BLOOD COUNT 6.1 K/mm3 (4.0-10.0)
[2024-11-20 14:39] LABS: CHLORIDE 105 mmol/L (98-107); POTASSIUM 4.4 mmol/L (3.5-5.1); SODIUM 139 mmol/L (136-145)
[2024-11-20 14:40] LABS: BLOOD UREA NITROGEN 15.6 mg/dL (7-18); CALCIUM 9.8 mg/dL (8.5-10.1)
[2024-11-20 14:41] LABS: ALBUMIN 3.7 g/dl (3.4-5.0); ANION GAP 6 mmol/L (4-13); CO2 29 mmol/L (21-32); GLUCOSE,RANDOM 77 mg/dL (74-106); MAGNESIUM 2.2 mg/dL (1.8-2.4)
[2024-11-20 14:44] LABS: CREATININE 0.7 mg/dL (0.55-1.3); SGOT/AST 14 U/L (15-37); SGPT/ALT 22 U/L (13-61)
[2024-11-20 14:45] LABS: BILIRUBIN,TOTAL 0.5 mg/dL (0.2-1); TOT PROT 7.5 g/dl (6.4-8.2)
[2024-11-20 14:46] LABS: ALK PHOS 82 U/L (45-117)
[2024-11-20 17:09] VITALS: BP 134/76; PULSE 105; RESP 20; TEMP 98.8
== END 2024-11-20 13:00 | disposition home or self-care (01) ==
LOC: JONCCHEMO 11:59
PROVIDERS: ATTEND Internal Medicine Hematology & Oncology
PROC: 3E013GC Introduction of Other Therapeutic Substance into Subcutaneous Tissue, Percutaneous Approach (ICD-10-PCS; principal; 2024-11-20)
DX: C50.912 Malignant neoplasm of unspecified site of left female breast (principal)
CPT/HCPCS: 36415; 80053; 82306; 82378; 82670; 83735; 84703; 85025; 86300; 96372; J1950

== ENCOUNTER 2024-12-18 11:19 | Day surgery (SDC) | payer OTHER ==
[2024-12-18] MEDS: LEUPROLIDE ACETATE 3.75 MG/KIT KIT IM ONE (11:52)
[2024-12-18 12:10] LABS: BASO % 1.4 % (0-2.0); EOS % 4.2 % (0-4.5); HEMATOCRIT 36.6 % (32.4-45.2); HEMOGLOBIN 12.4 GM/dL (10.7-15.3); LYMPH % 36.5 % (8-40); MCH 31.3 pg (25.7-33.7); MEAN CELL VOLUME 92.2 fl (80-96); MEAN PLT VOLUME 8.9 fl (7.5-11.1); MONO % 6.5 % (3.8-10.2); NEUT % 51.4 % (42.8-82.8); PLATELET COUNT 212 10^3/uL (134-434); RBC 3.97 M/mm3 (3.60-5.2); RDW 13.9 % (11.6-15.6); WHITE BLOOD COUNT 5.7 K/mm3 (4.0-10.0)
[2024-12-18 12:48] LABS: CHLORIDE 108 mmol/L (98-107); POTASSIUM 3.9 mmol/L (3.5-5.1); SODIUM 139 mmol/L (136-145)
[2024-12-18 12:49] LABS: CALCIUM 9.2 mg/dL (8.5-10.1)
[2024-12-18 12:51] LABS: ALBUMIN 3.6 g/dl (3.4-5.0); ANION GAP 5 mmol/L (4-13); BLOOD UREA NITROGEN 15.1 mg/dL (7-18); CO2 27 mmol/L (21-32); GLUCOSE,RANDOM 86 mg/dL (74-106); MAGNESIUM 2.1 mg/dL (1.8-2.4)
[2024-12-18 12:53] LABS: CREATININE 0.6 mg/dL (0.55-1.3); SGOT/AST 17 U/L (15-37); SGPT/ALT 17 U/L (13-61)
[2024-12-18 12:55] LABS: BILIRUBIN,TOTAL 0.3 mg/dL (0.2-1); TOT PROT 7.1 g/dl (6.4-8.2)
[2024-12-18 12:56] LABS: ALK PHOS 89 U/L (45-117)
[2024-12-18 17:40] VITALS: BP 130/79; PULSE 87; RESP 18; TEMP 97.9
== END 2024-12-18 12:00 | disposition home or self-care (01) ==
LOC: JONCCHEMO 11:19 → J7W 11:19 → JONCCHEMO 12:00
PROVIDERS: ATTEND Internal Medicine Hematology & Oncology
DX: Z51.11 Encounter for antineoplastic chemotherapy (principal); C50.912 Malignant neoplasm of unspecified site of left female breast
CPT/HCPCS: 36415; 80053; 82306; 82378; 82670; 83735; 84703; 85025; 86300; 96402; J1950

== ENCOUNTER 2025-03-26 11:30 | Day surgery (SDC) | payer OTHER ==
[2025-03-26] MEDS: LEUPROLIDE ACETATE 3.75 MG/KIT KIT IM ONE (11:34)
[2025-03-26 12:11] LABS: ABSOLUTE IMMATURE GRANULOCYTES 0.01 x10^3/uL (0.0-0.031); BASOPHILS # 0.05 x10^3/uL (0.01-0.08); EOSINOPHIL % 3.9 % (0.7-5.8); EOSINOPHILS # 0.21 x10^3/uL (0.04-0.36); HEMATOCRIT 39.3 % (34.1-44.9); HEMOGLOBIN 12.6 g/dL (11.2-15.7); MCHC 32.1 g/dl (32.2-35.5); MEAN CELL VOLUME 92.7 fl (79.4-94.8); MEAN PLT VOLUME 11.1 fl (9.4-12.3); MONOCYTE # 0.41 x10^3/uL (0.24-0.86); MONOCYTE % 7.7 % (4.7-12.5); PLATELET COUNT 251 x10^3/uL (182-369); RDW 13.3 % (12.3-16.6)
[2025-03-26 12:14] LABS: EPI CELLS 3 /uL (0-25.1); HYALINE CASTS 0 /uL (0-3.1); PH,URINE 7.5 (5.0-8.0); URINE APPEARANCE CLEAR; URINE BACTERIA 4408 /uL (0-1359); URINE BILIRUBIN NEGATIVE (NEGATIVE); URINE COLOR YELLOW; URINE GLUCOSE (UA) NEGATIVE (NEGATIVE); URINE KETONE NEGATIVE (NEGATIVE); URINE LEUK ESTERASE 1+ (NEGATIVE); URINE NITRITE NEGATIVE (NEGATIVE); URINE PROTEIN NEGATIVE (NEGATIVE); URINE RBC 17 /uL (0-23.9); URINE UROBILINOGEN 0.2 mg/dL (0.2-1.0); URINE WBC 87 /uL (0-25.8)
[2025-03-26 12:37] LABS: CHLORIDE 107 mmol/L (98-107); POTASSIUM 4.1 mmol/L (3.5-5.1); SODIUM 141 mmol/L (136-145)
[2025-03-26 12:40] LABS: ALBUMIN 3.6 g/dl (3.4-5.0); ANION GAP 8 mmol/L (4-13); BLOOD UREA NITROGEN 12.5 mg/dL (7-18); CALCIUM 9.9 mg/dL (8.5-10.1); CO2 25 mmol/L (21-32); MAGNESIUM 2.1 mg/dL (1.8-2.4)
[2025-03-26 12:41] LABS: GLUCOSE,RANDOM 68 mg/dL (74-106)
[2025-03-26 12:43] LABS: SGPT/ALT 18 U/L (13-61)
[2025-03-26 12:44] LABS: CREATININE 0.8 mg/dL (0.55-1.3); SGOT/AST 12 U/L (15-37)
[2025-03-26 12:45] LABS: BILIRUBIN,TOTAL 0.4 mg/dL (0.2-1); TOT PROT 7.3 g/dl (6.4-8.2)
[2025-03-26 12:46] LABS: ALK PHOS 93 U/L (45-117)
[2025-03-26 18:21] VITALS: BP 125/78; PULSE 90; RESP 18; TEMP 98.5
== END 2025-03-26 11:45 | disposition home or self-care (01) ==
LOC: JONCCHEMO 11:30
PROVIDERS: ATTEND Internal Medicine Hematology & Oncology
PROC: 3E023GC Introduction of Other Therapeutic Substance into Muscle, Percutaneous Approach (ICD-10-PCS; principal; 2025-03-26)
DX: C50.912 Malignant neoplasm of unspecified site of left female breast (principal); Z76.89 Persons encountering health services in other specified circumstances
CPT/HCPCS: 36415; 80053; 81003; 82306; 82378; 82670; 83735; 84703; 85025; 86300; 87086; J1950